=== PATIENT | female | born 1985 | race Caucasian/White ===

== ENCOUNTER 2017-02-26 06:04 | Inpatient (IN) ==
[2017-02-26 06:48] LABS: Amphetamine Screen,Urine Positive ng/mL (Cutoff=1000); Barbiturate Screen,Urine Negative ng/mL (Cutoff=200); Benzodiazepines Screen,Urine Positive ng/mL (Cutoff=200); Cannabinoid Screen,Urine Negative ng/mL (Cutoff = 50); Cocaine Screen,Urine Positive ng/mL (Cutoff= 300); Opiate Screen,Urine Negative ng/mL (Cutoff=300); Phencyclidine Screen,Urine Negative ng/mL (Cutoff=25)
[2017-02-26 07:00] LABS: Basophils # 0.1 K/mcL (0.0-0.2); Basophils % 1.1 %; Eosinophils % 0.4 %; Hematocrit 43.2 % (35.3-44.9); Immature Granulocytes % 0.2 % (0-4); Lymphocytes % 21.8 %; Mean Corpuscular HGB Conc 32.4 g/dL (31.6-35.5); Mean Corpuscular Hemoglobin 28.4 pg (28.0-33.3); Mean Corpuscular Volume 87.6 fL (83.0-100.0); Mean Platelet Volume 11.7 fL (9.4-12.4); Monocytes # 0.6 K/mcL (0.0-1.3); Monocytes % 12.6 %; Platelet Count 122 K/mcL (140-400); Red Blood Count 4.93 M/mcL (3.82-4.97); Red Cell Distribution Width 13.4 % (11.5-14.5); Segmented Neutrophils % 63.9 %
[2017-02-26 07:12] LABS: Acetaminophen < 1.0 mcg/mL (10-30); BUN/Creatinine Ratio 17 (6-26); Blood Urea Nitrogen 12 mg/dL (7-20); Calcium 9.7 mg/dL (8.6-10.8); Carbon Dioxide 24 mEq/L (19-29); Chloride 103 mEq/L (98-109); Ethanol < 10 mg/dL (0-10); Glucose 72 mg/dL (70-99); Osmolality,Calculated 286 (280-300); Potassium 3.3 mEq/L (3.5-4.5); Salicylate < 5.0 mg/dL (15-30); Sodium 139 mEq/L (136-145); eGFR For African Americans > 60 (> 60); eGFR For Non-African Americans > 60 (> 60)
--- NOTE | 2017-02-26 07:22 | Emergency Department Note ---
Disposition Clinical Impression: Libertad, Hallucinations, visual Disposition: Still a Patient Condition: Fair Referrals: NONE,PCP [Primary Care Provider] - General Adult HPI - General Chief complaint: ED General Medical Stated complaint: Psych eval Time Seen by Provider: 02/26/17 06:08 Source: patient Limitations: no limitations Nursing Notes Reviewed: Yes Vital Signs Reviewed: Yes - History of Present Illness HPI Narrative: 31-year-old female presents to emergency Department with concerns of hallucinations in for a psychiatric evaluation. Family noted patient had seen a person in the house that was not present, she stated that somebody was knocking on her window, she is also concerned that there were people sitting around cars outside of her house. Family members did not see these people. Patient denies suicidal ideation or homicidal ideation. She denies auditory hallucinations. Patient is mildly irritated that her family members did not see these people. Patient has a history of bipolar disorder but is not taking any medications. She is manic during our initial evaluation with pressured, tangential speech. Denies illicit drug use, denies alcohol use denies other prescription medication changes. Pain Scale: 0 - Related Data Previous Rx's Medication Instructions Recorded Amoxicillin 875 mg PO BID #20 tablet 06/20/15 Loratadine/Pseudophed (12 HR) 1 each PO BID #20 tab.er.12h 06/20/15 [Claritin D (12HR)] hydrOXYzine pamoate [HydrOXYzine 25 mg PO TID PRN #30 capsule 10/21/15 Pamoate] predniSONE [Prednisone] See Taper PO DAILY #42 tablet 10/21/15 Ibuprofen [Motrin] 600 mg PO Q6-8H PRN #30 tab 02/28/16 Lidocaine Viscous Oral Soln 2 ml TP Q1-3H PRN #50 ml 02/28/16 Ondansetron [Zofran] 8 mg PO Q8HR PRN #9 tablet 02/28/16 Amoxicillin 875 mg PO BID #20 tablet 09/12/16 GuaiFENesin Liq [Robitussin Liq] 200 mg PO Q6HR PRN #120 mls 09/12/16 Loratadine/Pseudophed (12 HR) 1 each PO BID #20 tab.er.12h 09/12/16 [Claritin D (12HR)] Allergies Allergy/AdvReac Type Severity Reaction Status Date / Time No Known Allergies Allergy Verified 06/20/15 19:07 All systems ED: reviewed and negative except as stated. Constitutional: Denies: fever, chills, weakness ENT ED: Denies: ear pain, throat pain Cardiovascular: Denies: chest pain, palpitations, dyspnea on exertion Respiratory: Denies: cough, dyspnea, wheezes, hemoptysis Gastrointestinal: Denies: abdominal pain, nausea, vomiting Genitourinary: Denies: urgency, dysuria Musculoskeletal: Denies: back pain, neck pain Integumentary: Denies: rash, abrasion, lesions Psychiatric: Reports: anxiety, visual hallucinations. Denies: depression, suicidal thoughts, homicidal thoughts, auditory hallucinations Endocrine: Denies: fatigue, heat or cold intolerance Hematological/Lymphatic: Denies: easy bleeding, easy bruising Past Medical History - Past Medical History Attestation: Yes The following information was validated with the patient. Source: patient Medical history: Reports: no medical history, hepatitis, other Psychiatric history: Reports: no psych history - Social History Smoking Status: Current every day smoker Smokeless Tobacco Status: No Alcohol use: Reports: none Drug use: Reports: none Physical Exam General: Alert and in no acute distress Skin: Warm, dry, intact Head: Normocephalic and atraumatic Neck: Supple, trachea midline and no tenderness Cardiovascular: Tachycardia, no murmur, normal perfusion Respiratory: CTAB, no wheezing, cough, or respiratory distress Musculoskeletal: Normal strength, no tenderness, swelling or deformity GI: Soft, nontender, nondistended. Bowel sounds present Neuro: A&O to person, place, time and situation. No focal deficits noted on exam Psychiatric: Pressured, tangential speech. Likely in a manic phase of bipolar disorder. - General Limitations: no limitations General appearance: alert, in no apparent distress Course Vital Signs Temperature 98 F 02/26/17 06:08 Pulse Rate 96 02/26/17 06:08 Respiratory Rate 18 02/26/17 06:08 Blood Pressure 109/76 02/26/17 06:08 O2 Sat by Pulse Oximetry 99 02/26/17 06:08 Temperature 98 F 02/26/17 06:08 Pulse Rate 96 02/26/17 06:08 Respiratory Rate 18 02/26/17 06:08 Blood Pressure 109/76 02/26/17 06:08 O2 Sat by Pulse Oximetry 99 02/26/17 06:08 Oxygen Delivery Oxygen Delivery Room Air Medical Decision Making - MDM Narrative Medical decision making narrative: Patient is likely in a manic phase of her bipolar disorder. Patient is not homicidal or suicidal. Patient will require a behavioral health evaluation. At the end of my shift she is pending laboratory results, reevaluation, behavioral health evaluation, and disposition. - Medical Records Medical records reviewed: Yes I reviewed the patient's medical records. - Lab Data Lab results reviewed: Yes I reviewed the patient's lab results. Result diagrams: 02/26/17 06:48 02/26/17 06:48 Lab Results 02/26/17 02/26/17 02/26/17 Range/Units 06:20 06:48 06:48 WBC 4.7 (4.3-11.1) K/mcL RBC 4.93 (3.82-4.97) M/mcL Hgb 14.0 (11.5-15.4) g/dL Hct 43.2 (35.3-44.9) % MCV 87.6 (83.0-100.0) fL MCH 28.4 (28.0-33.3) pg MCHC 32.4 (31.6-35.5) g/dL RDW 13.4 (11.5-14.5) % Plt Count 122 L (140-400) K/mcL MPV 11.7 (9.4-12.4) fL Immature Gran % 0.2 (0-4) % Seg Neutrophils % 63.9 % Lymphocytes % 21.8 % Monocytes % 12.6 % Eosinophils % 0.4 % Basophils % 1.1 % Neutrophils # 3.0 (1.6-8.9) K/mcL Lymphocytes # 1.0 (0.6-4.6) K/mcL Monocytes # 0.6 (0.0-1.3) K/mcL Eosinophils # 0.0 (0.0-0.6) K/mcL Basophils # 0.1 (0.0-0.2) K/mcL Sodium 139 (136-145) mEq/L Potassium 3.3 L (3.5-4.5) mEq/L Chloride 103 (98-109) mEq/L Carbon Dioxide 24 (19-29) mEq/L BUN 12 (7-20) mg/dL Creatinine 0.71 (0.57-1.11) mg/dL Est GFR ( Amer) > 60 (> 60) Est GFR (Non-Af Amer) > 60 (> 60) BUN/Creatinine Ratio 17 (6-26) Glucose 72 (70-99) mg/dL Calculated Osmolality 286 (280-300) Calcium 9.7 (8.6-10.8) mg/dL Salicylates < 5.0 L (15-30) mg/dL Urine Opiates Screen Negative (Txshkk=909) ng/mL Acetaminophen < 1.0 L (10-30) mcg/mL Ur Barbiturates Screen Negative (Fqaydh=668) ng/mL Ur Phencyclidine Scrn Negative (Cutoff=25) ng/mL Ur Amphetamines Screen Positive H (Xgxinf=8601) ng/mL U Benzodiazepines Scrn Positive H (Ueijia=794) ng/mL Urine Cocaine Screen Positive H (Cutoff= 300) ng/mL U Marijuana (THC) Screen Negative (Cutoff = 50) ng/mL Ethyl Alcohol < 10 (0-10) mg/dL
[2017-02-26 08:25] LABS: Bilirubin,Urine Negative (Negative); Blood,Urine Trace (Negative); Clarity,Urine Cloudy (Clear); Color,Urine Yellow (Yellow); Glucose,Urine (UA) Normal (Normal); Ketones,Urine 40 mg/dL (Negative); Leukocyte Esterase,Urine Moderate (Negative); Nitrite,Urine Negative (Negative); Protein,Urine 30 mg/dL (Neg-Trace); Specific Gravity,Urine 1.026 (1.010-1.025); Urobilinogen,Urine Normal (Normal)
[2017-02-26 08:26] LABS: Bacteria,Urine Moderate per hpf (None-Few); Hyaline Casts,Urine None Seen per lpf (None-Few); Squamous Epithelial Cell,Urine Many per lpf (None-Few); WBC,Urine TNTC per hpf (0-3)
[2017-02-26 08:39] LABS: RBC,Urine 0-3 per hpf (0-3)
--- NOTE | 2017-02-26 10:18 | Emergency Department Note ---
Disposition Clinical Impression: Libertad, Hallucinations, visual Disposition: Admitted As Inpatient Condition: Fair Referrals: NONE,PCP [Primary Care Provider] - Forms: ED Satisfaction Letter, Work/School Release Time of Disposition: 12:47 General Adult HPI - General Chief complaint: ED General Medical Stated complaint: Psych eval Time Seen by Provider: 02/26/17 06:08 Source: patient Limitations: no limitations - History of Present Illness Pain Scale: 0 - Related Data Home Medications Medication Instructions Recorded Confirmed Buprenorphine HCl/Naloxone HCl 1 film SL BID 02/26/17 02/26/17 [Buprenorphin-Naloxon 8-2 mg Sl] Allergies Allergy/AdvReac Type Severity Reaction Status Date / Time No Known Allergies Allergy Verified 06/20/15 19:07 Constitutional: Denies: fever, chills, weakness ENT ED: Denies: ear pain, throat pain Cardiovascular: Denies: chest pain, palpitations, dyspnea on exertion Respiratory: Denies: cough, dyspnea, wheezes, hemoptysis Gastrointestinal: Denies: abdominal pain, nausea, vomiting Genitourinary: Denies: urgency, dysuria Musculoskeletal: Denies: back pain, neck pain Integumentary: Denies: rash, abrasion, lesions Psychiatric: Reports: anxiety, visual hallucinations. Denies: depression, suicidal thoughts, homicidal thoughts, auditory hallucinations Endocrine: Denies: fatigue, heat or cold intolerance Hematological/Lymphatic: Denies: easy bleeding, easy bruising Past Medical History - Past Medical History Medical history: Reports: no medical history, hepatitis, other Psychiatric history: Reports: no psych history - Social History Smoking Status: Current every day smoker Smokeless Tobacco Status: No Alcohol use: Reports: none Drug use: Reports: none Physical Exam - General Limitations: no limitations General appearance: alert, in no apparent distress Course Course Narrative: Patient taken over at the beginning of my shift. Detailed sign out completed by Dr. Henrik Ji. We reviewed the patient's presentation symptoms medical history and evaluation. I introduced myself at the bedside with the patient this time. Patient is otherwise stable this point a psychiatric evaluation completed. See detailed documentation of physical exam of the previous physician. Definitive management to be completed by myself. Physical examination otherwise unremarkable - Reevaluation(s) Reevaluation #1: Psychiatric team contacted at 0930 hours. They are evaluating the patient the bedside Time: 09:30 Reevaluation #2: Patient admitted at this time by the psychiatric team. They will come take the patient on another facility. No other issues or concerns under this time. Time: 12:47 Vital Signs Temperature 98 F 02/26/17 06:08 Pulse Rate 96 02/26/17 06:08 Respiratory Rate 18 02/26/17 06:08 Blood Pressure 109/76 02/26/17 06:08 O2 Sat by Pulse Oximetry 99 02/26/17 06:08 Temperature 98 F 02/26/17 06:08 Pulse Rate 62 02/26/17 11:08 Respiratory Rate 16 02/26/17 11:08 Blood Pressure 103/53 02/26/17 11:08 O2 Sat by Pulse Oximetry 98 02/26/17 11:08 Oxygen Delivery Oxygen Delivery Room Air Medical Decision Making - MDM Narrative Medical decision making narrative: Manic episodes, delusions - Medical Records Medical records reviewed: Yes I reviewed the patient's medical records. - Lab Data Lab results reviewed: Yes I reviewed the patient's lab results. Result diagrams: 02/26/17 06:48 02/26/17 06:48 Lab Results 02/26/17 02/26/17 02/26/17 Range/Units 06:20 06:48 06:48 WBC 4.7 (4.3-11.1) K/mcL RBC 4.93 (3.82-4.97) M/mcL Hgb 14.0 (11.5-15.4) g/dL Hct 43.2 (35.3-44.9) % MCV 87.6 (83.0-100.0) fL MCH 28.4 (28.0-33.3) pg MCHC 32.4 (31.6-35.5) g/dL RDW 13.4 (11.5-14.5) % Plt Count 122 L (140-400) K/mcL MPV 11.7 (9.4-12.4) fL Immature Gran % 0.2 (0-4) % Seg Neutrophils % 63.9 % Lymphocytes % 21.8 % Monocytes % 12.6 % Eosinophils % 0.4 % Basophils % 1.1 % Neutrophils # 3.0 (1.6-8.9) K/mcL Lymphocytes # 1.0 (0.6-4.6) K/mcL Monocytes # 0.6 (0.0-1.3) K/mcL Eosinophils # 0.0 (0.0-0.6) K/mcL Basophils # 0.1 (0.0-0.2) K/mcL Sodium 139 (136-145) mEq/L Potassium 3.3 L (3.5-4.5) mEq/L Chloride 103 (98-109) mEq/L Carbon Dioxide 24 (19-29) mEq/L BUN 12 (7-20) mg/dL Creatinine 0.71 (0.57-1.11) mg/dL Est GFR ( Amer) > 60 (> 60) Est GFR (Non-Af Amer) > 60 (> 60) BUN/Creatinine Ratio 17 (6-26) Glucose 72 (70-99) mg/dL Calculated Osmolality 286 (280-300) Calcium 9.7 (8.6-10.8) mg/dL Urine Color (Yellow) Urine Clarity (Clear) Urine pH (5.0-8.0) pH Units Ur Specific [place] (1.010-1.025) Urine Protein (Neg-Trace) mg/dL Urine Glucose (UA) (Normal) mg/dL Urine Ketones (Negative) mg/dL Urine Blood (Negative) Urine Nitrite (Negative) Urine Bilirubin (Negative) Urine Urobilinogen (Normal) mg/dL Ur Leukocyte Esterase (Negative) Urine Microscopic RBC (0-3) per hpf Urine Microscopic WBC (0-3) per hpf Ur Squamous Epith Cells (None-Few) per lpf Urine Bacteria (None-Few) per hpf Hyaline Casts (None-Few) per lpf Salicylates < 5.0 L (15-30) mg/dL Urine Opiates Screen Negative (Yedbus=518) ng/mL Acetaminophen < 1.0 L (10-30) mcg/mL Ur Barbiturates Screen Negative (Npoaiw=758) ng/mL Ur Phencyclidine Scrn Negative (Cutoff=25) ng/mL Ur Amphetamines Screen Positive H (Joelmz=7192) ng/mL U Benzodiazepines Scrn Positive H (Ublmeg=617) ng/mL Urine Cocaine Screen Positive H (Cutoff= 300) ng/mL U Marijuana (THC) Screen Negative (Cutoff = 50) ng/mL Ethyl Alcohol < 10 (0-10) mg/dL 02/26/17 Range/Units 08:11 WBC (4.3-11.1) K/mcL RBC (3.82-4.97) M/mcL Hgb (11.5-15.4) g/dL Hct (35.3-44.9) % MCV (83.0-100.0) fL MCH (28.0-33.3) pg MCHC (31.6-35.5) g/dL RDW (11.5-14.5) % Plt Count (140-400) K/mcL MPV (9.4-12.4) fL Immature Gran % (0-4) % Seg Neutrophils % % Lymphocytes % % Monocytes % % Eosinophils % % Basophils % % Neutrophils # (1.6-8.9) K/mcL Lymphocytes # (0.6-4.6) K/mcL Monocytes # (0.0-1.3) K/mcL Eosinophils # (0.0-0.6) K/mcL Basophils # (0.0-0.2) K/mcL Sodium (136-145) mEq/L Potassium (3.5-4.5) mEq/L Chloride (98-109) mEq/L Carbon Dioxide (19-29) mEq/L BUN (7-20) mg/dL Creatinine (0.57-1.11) mg/dL Est GFR ( Amer) (> 60) Est GFR (Non-Af Amer) (> 60) BUN/Creatinine Ratio (6-26) Glucose (70-99) mg/dL Calculated Osmolality (280-300) Calcium (8.6-10.8) mg/dL Urine Color Yellow (Yellow) Urine Clarity Cloudy A (Clear) Urine pH 6.0 (5.0-8.0) pH Units Ur Specific [place] 1.026 H (1.010-1.025) Urine Protein 30 H (Neg-Trace) mg/dL Urine Glucose (UA) Normal (Normal) mg/dL Urine Ketones 40 H (Negative) mg/dL Urine Blood Trace H (Negative) Urine Nitrite Negative (Negative) Urine Bilirubin Negative (Negative) Urine Urobilinogen Normal (Normal) mg/dL Ur Leukocyte Esterase Moderate H (Negative) Urine Microscopic RBC 0-3 (0-3) per hpf Urine Microscopic WBC TNTC H (0-3) per hpf Ur Squamous Epith Cells Many H (None-Few) per lpf Urine Bacteria Moderate H (None-Few) per hpf Hyaline Casts None Seen (None-Few) per lpf Salicylates (15-30) mg/dL Urine Opiates Screen (Klbkwg=804) ng/mL Acetaminophen (10-30) mcg/mL Ur Barbiturates Screen (Whhsom=797) ng/mL Ur Phencyclidine Scrn (Cutoff=25) ng/mL Ur Amphetamines Screen (Gassvb=6329) ng/mL U Benzodiazepines Scrn (Tlunsj=308) ng/mL Urine Cocaine Screen (Cutoff= 300) ng/mL U Marijuana (THC) Screen (Cutoff = 50) ng/mL Ethyl Alcohol (0-10) mg/dL
[2017-02-26] MEDS ORDERED: Mag Hydrox/Al Hydrox/Simeth 30 ML UDC PO PRN (13:23)
[2017-02-26] MEDS ORDERED: Haloperidol Lactate 5 MG/ML VIAL IM PRN (13:23)
[2017-02-26] MEDS ORDERED: MOM Conc 10 ML UD.LIQ PO PRN (13:23)
[2017-02-26] MEDS ORDERED: *HR* LORazepam 2 MG/ML VIAL IM PRN (13:23)
[2017-02-26] MEDS ORDERED: *HR* LORazepam 1 MG TABLET PO PRN (13:23)
[2017-02-26] MEDS ORDERED: traZODone 50 MG TABLET PO PRN (21:00)
[2017-02-26] MEDS: Acetaminophen 325 MG TABLET PO PRN (21:49)
--- NOTE | 2017-02-26 22:55 | Internal Medicine Consult Note ---
Date of Encounter: 02/26/17 Time of Encounter: 22:30 - Assessment and Plan (1) Cellulitis of right hand Current Visit: Yes Status: Acute Assessment and plan: She denied any recent IV drug usage No needle grimaldo / no open wounds noticed over Rt wirst Her WBC - WNL, No fever, Normal HR, at this point will treat her with PO Abx Clindamycin Will get X ray of Hand / Wrist If she develops any fever, or her hand swelling gets worse will consider to transferring her to out Hospitalist service and treat her with IV Abx mean while cont supportive and symptomatic care keep hand elevated keep cold compressions PO analgesics PRN I wanted to thank Dr. Valles for involving us in your pt's care. (2) IV drug abuse Current Visit: Yes Status: Acute Assessment and plan: Toxicology is positive for Benzo, Cocaine and Amepthamines Counseled about drug usage (3) Hallucinations, visual Current Visit: Yes Status: Acute Assessment and plan: Cont current excellent care by primary team Internal Medicine - CN: HPI - Data of Consult Patient: new to practice Requesting Physician: Adriane Valles MD - Consult Narrative History of present illness: Ms. Crandall is a 31 year old female with known possible Bipolar / psychiatric problem pt admitted into [facility] today after she presented to ER with hallucinations. She also happened to have Rt hand welling and tenderness from last 2 days. We are asked to evaluate this pt for her cellulites treatment and possible transfer to regular floor if she needed. When I examined the pt she is resting comfortably, she did c/o swelling in Rt Hand swelling / tenderness from last 2 days, which progressively worsening. She denied any loss of sensation in her fingers, able to wiggle and move all her fingers ok. She denied any trauma. She denied any CP / SOB. She denied any fever / chills. Past Med Surg Social Fam HX - Past Medical History Medical history: no medical history, hepatitis, other Psychiatric history: no psych history - Past Surgical History Surgical History: - Social History Smoking Status: Current every day smoker Packs per day: 1 Smokeless Tobacco Status: No Alcohol use: none Drug use: cocaine, methamphetamine, other - Additional Family History Additional family history: Family hsitory reviewed and non contribuitory to current problem. Review of systems: All the systems are reviewed everything is benign except the systems and symptoms I mentioned in the history of present illness Internal Medicine - CN: Meds Buprenorphine HCl/Naloxone HCl [Buprenorphin-Naloxon 8-2 mg Sl] 1 film SL BID [History] 3 Allergy/AdvReac Type Severity Reaction Status Date / Time No Known Allergies Allergy Verified 06/20/15 19:07 Internal Medicine - CN: Exam - Constitutional Vitals: Temp Pulse Resp BP Pulse Ox 98.0 F 91 20 136/69 98 02/26/17 20:21 02/26/17 20:21 02/26/17 20:21 02/26/17 20:21 02/26/17 11:08 General appearance IM: Present: A&O X 3, no acute distress, answers questions appropriately - Head Head exam: Present: atraumatic, normal inspection - Neck Neck exam general surgery: Present: normal inspection, supple - Respiratory Respiratory exam: Present: decreased breath sounds. Absent: rales, respiratory distress, rhonchi, wheezes - Cardiovascular Cardiovascular exam IM: Present: RRR, +S1, +S2. Absent: diastolic murmur, systolic murmur, tachycardia - GI/Abdominal GI/Abdominal exam IM: Present: soft. Absent: distended, rebound, rigid, tenderness - Extremities Exam Extremities exam IM: Absent: calf tenderness, mottling, pedal edema Additional comments: mild erythema and moderate swelling noticed over Rt hand dorsum and plantar region around base of 1st meta carpal region - Expanded Upper Extremities Exam Hand wrist exam: Present: swelling, tenderness. Absent: crepitus, dislocation, laceration - Back Exam Back exam: Absent: CVA tenderness (L), CVA tenderness (R) - Neurological Exam Neurological exam: Present: alert, oriented X3 - Psychiatric Psychiatric exam: Present: anxious. Absent: suicidal ideation Internal Medicine - CN: Reslt - Labs CBC & Chem 7: 02/26/17 06:48 02/26/17 06:48 Consult Discharge Plan - Plan Referrals: NONE,PCP [Primary Care Provider] -
--- NOTE | 2017-02-27 14:37 | Internal Med Progress Note ---
Date of Encounter: 02/27/17 Time of Encounter: 14:33 - Assessment and plan (1) Cellulitis of right hand Current Visit: Yes Status: Acute Assessment and plan: Clinically improving will continue Clindamycin PO repeat labs in am keep hand elevated cold compressions PO analgesics as needed (2) Hallucinations, visual Current Visit: Yes Status: Acute Assessment and plan: management per psych (3) IV drug abuse Current Visit: Yes Status: Chronic - Subjective Interval history: Pt is a 31y/o female admitted to psych inpatient unit for hallucinations/ bipolar disorder. Medicine consulted for right hand cellulitis. Patient seen and examined at bedside. Resting comfortably in bed. Erythema improved on right hand, no pain reported. As per nursing report, patient did not receive morning dose of Clindamycin but has received the afternoon dose. - Constitutional Vitals: Temp Pulse Resp BP Pulse Ox 99.3 F 94 18 108/65 98 02/27/17 09:00 02/27/17 09:00 02/27/17 09:00 02/27/17 09:00 02/26/17 11:08 General appearance: Present: disheveled, A&O X 3, no acute distress, answers questions appropriately - Head Head exam: Present: atraumatic, normocephalic - Eye Eye exam: Present: conjuntiva pink, sclera anicteric - Respiratory Respiratory exam: Present: CTAB. Absent: respiratory distress, wheezes - Cardiovascular Cardiovascular exam: Present: RRR, +S1, +S2. Absent: diastolic murmur, gallop, rubs, systolic murmur - GI/Abdominal GI/Abdominal exam: Present: normal bowel sounds, soft, no peritoneal signs. Absent: distended, tenderness - Extremities Exam Extremities exam: Present: warm, radial pulses palpable and symmetrical. Absent : calf tenderness, cyanotic, pedal edema Additional comments: right hand erythema localized to dorsal hand and edema of dorsal hand. Warm to touch nontender - Neurological Exam Neurological exam: Present: alert, oriented X3 - Psychiatric Psychiatric exam: Present: normal affect, normal mood Internal Medicine: Result - Labs CBC & Chem 7: 02/26/17 06:48 02/26/17 06:48 - Impressions Impressions Hand X-Ray 02/26/17 22:45 IMPRESSION: Soft tissue swelling suggested dorsally at the palmar level. No acute osseous findings. D/ / Naseem Adame MD / Naseem Adame MD Interpreting Provider: Naseem Adame MD - VTE Reasons for not Prescribing Prophylaxis: Treatment not Indicated - Low risk for VTE Consult Discharge Plan - Plan Referrals: NONE,PCP [Primary Care Provider] -
--- NOTE | 2017-02-27 15:55 | Psychiatry History & Physical ---
Date of Encounter: 02/27/17 Time of Encounter: 15:50 History of Present Illness Patient Stated Chief Complaint: psychosis Medicare Admission Attestation: For traditional Medicare patients the provided hospital inpatient services are reasonable and necessary and in the case of services not specified as inpatient -only under 42 CFR 419.22 (n), that they are appropriately provided as inpatient services in accordance 42 CFR 412.3. For Critical Access Hospital the patient may reasonably be expected to be discharged or transferred to a hospital within 96 hours after admission to the Critical Access Hospital. Admitted From: Home Plans for Post Hospital Care: Home History of Present Illness: Ms. Crandall is a 31 year old female who presented to the ER in a psychotic state. Tox screen positive for multiple substances of abuse including amphetamines. Last night she was irritable with staff. She was cussing, threatening, and she required prns. Today she is calmer and more pleasant. Still not thinking clearly but no longer responding to internal stimuli. Admits she is depressed but denies SI. One previous admission for SI but denies any follow-up. Claims she was tried on [place] and Zoloft at the time but did not benefit from them. Discussed options and she is interested in trying Seroquel. She is also interested in outpatient services so will make referrals for counseling and med management. Already linked with AOD treatment. Part of a Suboxone clinic. Developed cellulitis overnight. Hospitalist has seen her and she was started on antibiotics and pain meds. History of MRSA and IV antibiotics. Currently living with parents and plans to return to their home once stable. Past Med Surg Social Fam HX - Past Medical History Medical history: no medical history, hepatitis, other - Past Psychiatric History Psychiatric history: Reports: depression, previous psychiatric hospitalization Family psychiatric history: Unknown Family History of Suicide: Unknown - Past Surgical History Surgical History: - Social History Smoking Status: Current every day smoker Smokeless Tobacco Status: No Alcohol use: none Drug use: none Medications & Allergies Buprenorphine HCl/Naloxone HCl [Buprenorphin-Naloxon 8-2 mg Sl] 1 film SL BID [History] 3 Allergy/AdvReac Type Severity Reaction Status Date / Time No Known Allergies Allergy Verified 06/20/15 19:07 Review of Systems Constitutional: Denies: fever, chills, weakness, weight change Eyes: Denies: eye pain, vision change Ears, Nose, Throat: Denies: ear pain, throat pain, dental pain, hearing loss, congestion Cardiovascular: Denies: chest pain, palpitations, dyspnea on exertion Respiratory: Denies: cough, dyspnea, wheezes Gastrointestinal: Denies: abdominal pain, nausea, vomiting, diarrhea, constipation Genitourinary male: Denies: urgency, dysuria, frequency, genital lesions Genitourinary female: Denies: urgency, dysuria, frequency, abnormal menses, dyspareunia Musculoskeletal: Reports: joint swelling, joint pain Integumentary: Reports: other Neurological: Denies: headache, weakness, numbness, memory loss Psychiatric: Reports: depression Endocrine: Denies: fatigue, heat or cold intolerance Hematologic/Lymphatic: Denies: easy bruising, lymphadenopathy Allergic/Immunologic: Denies: urticaria, itchy eyes Mental Status Exam Patient orientation: Yes Person, Yes Time, Yes Place Level of alertness: Alert Patient appearance: Appropriate, Well Groomed Behavior: calm, cooperative Psychomotor activity: Normal Eye contact: Maintains Eye Contact Mood description: Depressed Affect description: full range Speech pattern: Normal rate, Normal rhythm, Normal tone Speech volume: Normal Thought process: Tangential Thought content: No Suicidal ideation, No Homicidal ideation, Yes Preoccupation Perceptual disturbances: No Auditory hallucinations, No Visual hallucinations Attention span: Capable of Focused Attention Memory description: Grossly Intact Patient reliability: Questionable Historian Intelligence estimate: Average Judgment: Limited Insight: Minimal Exam - HEENT Head exam IM: Present: atraumatic Eye exam IM: Present: EOMI ENT exam IM: Present: mucous membranes moist - Neurological Neurological exam IM: Present: alert, oriented X3 - Respiratory Respiratory exam IM: Present: CTAB - GI/Abdominal GI/Abdominal exam IM: Present: normal bowel sounds - Extremities Extremities exam IM: Present: tenderness, warm - Skin Skin exam IM: Present: erythema Results - Vital Signs Vital signs: Temp Pulse Resp BP Pulse Ox 99.3 F 94 18 108/65 98 02/27/17 09:00 02/27/17 09:00 02/27/17 09:00 02/27/17 09:00 02/26/17 11:08 - Labs Labs: Laboratory Last Values WBC 4.7 K/mcL (4.3-11.1) 02/26/17 06:48 RBC 4.93 M/mcL (3.82-4.97) 02/26/17 06:48 Hgb 14.0 g/dL (11.5-15.4) 02/26/17 06:48 Hct 43.2 % (35.3-44.9) 02/26/17 06:48 MCV 87.6 fL (83.0-100.0) 02/26/17 06:48 MCH 28.4 pg (28.0-33.3) 02/26/17 06:48 MCHC 32.4 g/dL (31.6-35.5) 02/26/17 06:48 RDW 13.4 % (11.5-14.5) 02/26/17 06:48 Plt Count 122 K/mcL (140-400) L 02/26/17 06:48 MPV 11.7 fL (9.4-12.4) 02/26/17 06:48 Immature Gran % 0.2 % (0-4) 02/26/17 06:48 Seg Neutrophils % 63.9 % 02/26/17 06:48 Lymphocytes % 21.8 % 02/26/17 06:48 Monocytes % 12.6 % 02/26/17 06:48 Eosinophils % 0.4 % 02/26/17 06:48 Basophils % 1.1 % 02/26/17 06:48 Neutrophils # 3.0 K/mcL (1.6-8.9) 02/26/17 06:48 Lymphocytes # 1.0 K/mcL (0.6-4.6) 02/26/17 06:48 Monocytes # 0.6 K/mcL (0.0-1.3) 02/26/17 06:48 Eosinophils # 0.0 K/mcL (0.0-0.6) 02/26/17 06:48 Basophils # 0.1 K/mcL (0.0-0.2) 02/26/17 06:48 Sodium 139 mEq/L (136-145) 02/26/17 06:48 Potassium 3.3 mEq/L (3.5-4.5) L 02/26/17 06:48 Chloride 103 mEq/L (98-109) 02/26/17 06:48 Carbon Dioxide 24 mEq/L (19-29) 02/26/17 06:48 BUN 12 mg/dL (7-20) 02/26/17 06:48 Creatinine 0.71 mg/dL (0.57-1.11) 02/26/17 06:48 Est GFR ( Amer) > 60 (> 60) 02/26/17 06:48 Est GFR (Non-Af Amer) > 60 (> 60) 02/26/17 06:48 BUN/Creatinine Ratio 17 (6-26) 02/26/17 06:48 Glucose 72 mg/dL (70-99) 02/26/17 06:48 Calculated Osmolality 286 (280-300) 02/26/17 06:48 Calcium 9.7 mg/dL (8.6-10.8) 02/26/17 06:48 Urine Color Yellow (Yellow) 02/26/17 08:11 Urine Clarity Cloudy (Clear) A 02/26/17 08:11 Urine pH 6.0 pH Units (5.0-8.0) 02/26/17 08:11 Ur Specific [place] 1.026 (1.010-1.025) H 02/26/17 08:11 Urine Protein 30 mg/dL (Neg-Trace) H 02/26/17 08:11 Urine Glucose (UA) Normal mg/dL (Normal) 02/26/17 08:11 Urine Ketones 40 mg/dL (Negative) H 02/26/17 08:11 Urine Blood Trace (Negative) H 02/26/17 08:11 Urine Nitrite Negative (Negative) 02/26/17 08:11 Urine Bilirubin Negative (Negative) 02/26/17 08:11 Urine Urobilinogen Normal mg/dL (Normal) 02/26/17 08:11 Ur Leukocyte Esterase Moderate (Negative) H 02/26/17 08:11 Urine Microscopic RBC 0-3 per hpf (0-3) 02/26/17 08:11 Urine Microscopic WBC TNTC per hpf (0-3) H 02/26/17 08:11 Ur Squamous Epith Cells Many per lpf (None-Few) H 02/26/17 08:11 Urine Bacteria Moderate per hpf (None-Few) H 02/26/17 08:11 Hyaline Casts None Seen per lpf (None-Few) 02/26/17 08:11 Salicylates < 5.0 mg/dL (15-30) L 02/26/17 06:48 Urine Opiates Screen Negative ng/mL (Aidbmi=638) 02/26/17 06:20 Acetaminophen < 1.0 mcg/mL (10-30) L 02/26/17 06:48 Ur Barbiturates Screen Negative ng/mL (Pphsrb=069) 02/26/17 06:20 Ur Phencyclidine Scrn Negative ng/mL (Cutoff=25) 02/26/17 06:20 Ur Amphetamines Screen Positive ng/mL (Ppvbqi=4618) H 02/26/17 06:20 U Benzodiazepines Scrn Positive ng/mL (Gtafvc=773) H 02/26/17 06:20 Urine Cocaine Screen Positive ng/mL (Cutoff= 300) H 02/26/17 06:20 U Marijuana (THC) Screen Negative ng/mL (Cutoff = 50) 02/26/17 06:20 Ethyl Alcohol < 10 mg/dL (0-10) 02/26/17 06:48 - Impressions Impressions Hand X-Ray 02/26/17 22:45 IMPRESSION: Soft tissue swelling suggested dorsally at the palmar level. No acute osseous findings. D/ / Naseem Adame MD / Naseem Adame MD Interpreting Provider: Naseem Adame MD Assessment and Plan (1) Psychosis Current visit: Yes Status: Acute Plan: Admit inpatient for safety and stabilization, Close observation, Suicide Precautions per unit protocol, Encourage participation in unit milieu, Group Therapy, Monitor sleep, Monitor appetite Risks, benefits, side effects, alternatives discussed w/pt: Yes Patient agreeable to treatment: Yes Plans for Post Hospital Care: Home Estimated Length of Stay (Days): 4 Qualifiers: Psychosis type: unspecified psychosis type Qualified Code(s): F29 - Unspecified psychosis not due to a substance or known physiological condition
[2017-02-27] MEDS: *HR* HYDROcodone/Acet 5/325 mg TABLET PO PRN (19:57)
[2017-02-27] MEDS: hydrOXYzine pamoate 25 MG CAPSULE PO PRN (19:58)
[2017-02-28 08:46] LABS: BUN/Creatinine Ratio 15 (6-26); Blood Urea Nitrogen 10 mg/dL (7-20); Calcium 9.1 mg/dL (8.6-10.8); Carbon Dioxide 26 mEq/L (19-29); Chloride 106 mEq/L (98-109); Glucose 80 mg/dL (70-99); Magnesium 1.9 mg/dL (1.6-2.6); Osmolality,Calculated 286 (280-300); Phosphorous 3.3 mg/dL (2.3-4.7); Potassium 3.8 mEq/L (3.5-4.5); Sodium 139 mEq/L (136-145); eGFR For African Americans > 60 (> 60); eGFR For Non-African Americans > 60 (> 60)
[2017-02-28 08:57] LABS: Basophils % 0.5 %; Eosinophils # 0.1 K/mcL (0.0-0.6); Eosinophils % 1.2 %; Hematocrit 42.5 % (35.3-44.9); Hemoglobin 13.8 g/dL (11.5-15.4); Immature Granulocytes % 0.2 % (0-4); Lymphocytes # 1.5 K/mcL (0.6-4.6); Lymphocytes % 22.5 %; Mean Corpuscular HGB Conc 32.5 g/dL (31.6-35.5); Mean Corpuscular Hemoglobin 28.6 pg (28.0-33.3); Mean Corpuscular Volume 88.2 fL (83.0-100.0); Mean Platelet Volume 11.6 fL (9.4-12.4); Monocytes # 0.8 K/mcL (0.0-1.3); Monocytes % 11.6 %; Neutrophils # 4.2 K/mcL (1.6-8.9); Platelet Count 137 K/mcL (140-400); Red Blood Count 4.82 M/mcL (3.82-4.97); Red Cell Distribution Width 13.5 % (11.5-14.5)
[2017-02-28] MEDS: Acetaminophen 325 MG TABLET PO PRN (08:57)
--- NOTE | 2017-02-28 10:12 | Psychiatry Progress Note ---
Date of Encounter: 02/28/17 Time of Encounter: 10:08 Subjective Interval history: Looks better. Spent most of yesterday sleeping. Took the Seroquel last night and reports it helped. Also received Haldol and Ativan according to client so will need to verify what exactly happened to warrant the prns. However, with the Haldol and Seroquel on board and the recreational drugs leaving her system she is looking a lot better. Want to give her one more night on meds and hopefully without the need for prns. If she is still doing well in the morning will look at discharge tomorrow. She is already linked with AOD services. Currently being set up with a PCP and outpatient mental health follow-up. Cellulitis looks much better. Antibiotics seem to be working. Review of Systems Constitutional: Denies: fever, chills, weakness, weight change Eyes: Denies: eye pain, vision change Ears, Nose, Throat: Denies: ear pain, throat pain, dental pain, hearing loss, congestion Cardiovascular: Denies: chest pain, palpitations, dyspnea on exertion Respiratory: Denies: cough, dyspnea, wheezes Gastrointestinal: Denies: abdominal pain, nausea, vomiting, diarrhea, constipation Musculoskeletal: Denies: joint swelling, joint pain Integumentary: Reports: other Neurological: Denies: headache, weakness, numbness, memory loss Psychiatric: Reports: depression Objective: Exam Patient orientation: Yes Person, Yes Time, Yes Place Level of alertness: Alert Patient appearance: Appropriate, Well Groomed Behavior: calm, cooperative Psychomotor activity: Normal Eye contact: Maintains Eye Contact Mood description: Euthymic/stable Affect description: congruent with mood, full range Speech pattern: Normal rate, Normal rhythm, Normal tone Speech volume: Normal Thought process: Linear, Goal Oriented Thought content: No Suicidal ideation, No Homicidal ideation, No Overt delusions Perceptual disturbances: No Auditory hallucinations, No Visual hallucinations Judgment: Limited Insight: Minimal Results - Vital Signs Vital Signs: Temp Pulse Resp BP Pulse Ox 98.8 F 90 18 106/74 98 02/28/17 09:00 02/28/17 09:00 02/28/17 09:00 02/28/17 09:00 02/26/17 11:08 - Labs Labs: Laboratory Results - last 24 hr 02/28/17 02/28/17 08:07 08:07 WBC 6.5 RBC 4.82 Hgb 13.8 Hct 42.5 MCV 88.2 MCH 28.6 MCHC 32.5 RDW 13.5 Plt Count 137 L MPV 11.6 Immature Gran % 0.2 Seg Neutrophils % 64.0 Lymphocytes % 22.5 Monocytes % 11.6 Eosinophils % 1.2 Basophils % 0.5 Neutrophils # 4.2 Lymphocytes # 1.5 Monocytes # 0.8 Eosinophils # 0.1 Basophils # 0.0 Sodium 139 Potassium 3.8 Chloride 106 Carbon Dioxide 26 BUN 10 Creatinine 0.66 Est GFR ( Amer) > 60 Est GFR (Non-Af Amer) > 60 BUN/Creatinine Ratio 15 Glucose 80 Calculated Osmolality 286 Calcium 9.1 Phosphorus 3.3 Magnesium 1.9 - Impressions ITS Impressions Hand X-Ray 02/26/17 22:45 IMPRESSION: Soft tissue swelling suggested dorsally at the palmar level. No acute osseous findings. D/ / Naseem Adame MD / Naseem Adame MD Interpreting Provider: Naseem Adame MD Assessment and Plan (1) Psychosis Current visit: Yes Status: Acute Plan: Continue hospitalization, Close observation, Suicide Precautions per unit protocol, Encourage participation in unit milieu, Group Therapy, Monitor sleep, Monitor appetite Risks, benefits, side effects, alternatives discussed w/pt: Yes Patient agreeable to treatment: Yes Qualifiers: Psychosis type: unspecified psychosis type Qualified Code(s): F29 - Unspecified psychosis not due to a substance or known physiological condition Consult Discharge Plan - Plan Referrals: NONE,PCP [Primary Care Provider] -
--- NOTE | 2017-02-28 15:39 | Internal Med Progress Note ---
Date of Encounter: 02/28/17 Time of Encounter: 14:45 - Assessment and plan (1) Cellulitis of right hand Current Visit: Yes Status: Acute Assessment and plan: Clinically improving, afebrile, noted to have more mobility in the hand will continue Clindamycin PO keep hand elevated cold compressions PO analgesics as needed Pt will need ten days of PO abx total Risks associated with abx use discussed in detail with the patient Labs reviewed-all within acceptable range (2) Hallucinations, visual Current Visit: Yes Status: Acute Assessment and plan: management per psych (3) IV drug abuse Current Visit: Yes Status: Chronic - Subjective Interval history: Pt is a 31y/o female admitted to psych inpatient unit for hallucinations/ bipolar disorder. Medicine consulted for right hand cellulitis. Patient seen and examined at bedside. Resting comfortably in bed. Erythema improved on right hand, no pain reported. - Constitutional Vitals: Temp Pulse Resp BP Pulse Ox 98.8 F 90 18 106/74 98 02/28/17 09:00 02/28/17 09:00 02/28/17 09:00 02/28/17 09:00 02/26/17 11:08 General appearance: Present: disheveled, A&O X 3, no acute distress, answers questions appropriately - Head Head exam: Present: atraumatic, normocephalic - Eye Eye exam: Present: conjuntiva pink, sclera anicteric - Respiratory Respiratory exam: Present: CTAB. Absent: accessory muscle use, rales, rhonchi, wheezes - Cardiovascular Cardiovascular exam: Present: RRR, +S1, +S2. Absent: diastolic murmur, gallop, rubs, systolic murmur - GI/Abdominal GI/Abdominal exam: Present: normal bowel sounds, soft, no peritoneal signs. Absent: distended, tenderness - Extremities Exam Extremities exam: Present: warm, radial pulses palpable and symmetrical. Absent : calf tenderness, cyanotic, pedal edema Additional comments: right hand erythema/edema on dorsal surface of hand, non tender-improved from previous day - Neurological Exam Neurological exam: Present: alert, oriented X3 Internal Medicine: Result - Labs CBC & Chem 7: 02/28/17 08:07 02/28/17 08:07 Labs: Short CBC 02/28/17 Range/Units 08:07 WBC 6.5 (4.3-11.1) K/mcL Hgb 13.8 (11.5-15.4) g/dL Hct 42.5 (35.3-44.9) % Plt Count 137 L (140-400) K/mcL Neutrophils # 4.2 (1.6-8.9) K/mcL BMP 02/28/17 08:07 Sodium 139 Potassium 3.8 Chloride 106 Carbon Dioxide 26 BUN 10 Creatinine 0.66 Glucose 80 Calcium 9.1 - VTE Reasons for not Prescribing Prophylaxis: Treatment not Indicated - Low risk for VTE Consult Discharge Plan - Plan Additional Instructions: Patient will resume services with [facility] on 03/01/2017 at 11:30am Referrals: [facility] [Outside] (The above appointment is with , for outpatient psychiatric assessment and medication management services. Please arrive 30 minutes early to complete paperwork. Please bring your photo ID ( bring proof of address if you do not have an ID) and medication list. This is the first available appointment. You may contact the office regularly to check for cancellations that may allow you to be seen sooner. Additionally, the new caseworker intake assigned to you will contact you directly to schedule your intake appointment for case management and mental health counseling services. ) Esmer Dela Cruz [Advanced Practice Nurse] - 03/02/17 9:30 am (The above appointment is with Esmer Dela Cruz CNP, at [facility]. This appointment is to establish you with a primary care provider. Please arrive 15 minutes early to complete paperwork. Please bring your insurance card, photo ID and list of current medications to your first appointment. This is the first available appointment. You may contact the office regularly to check for cancellations that may allow you to be seen sooner. )
[2017-02-28] MEDS: hydrOXYzine pamoate 25 MG CAPSULE PO PRN (21:00)
[2017-02-28] MEDS: *HR* HYDROcodone/Acet 5/325 mg TABLET PO PRN (21:00)
[2017-03-01 08:24] VITALS: BP 102/69
--- NOTE | 2017-03-01 08:55 | Discharge Summary ---
Date of Encounter: 03/01/17 Time of Encounter: 08:49 Diagnosis - Discharge Diagnosis (1) Psychosis Status: Acute Qualifiers: Psychosis type: unspecified psychosis type Qualified Code(s): F29 - Unspecified psychosis not due to a substance or known physiological condition Medications - Discharge Medications Prescriptions: HYDROcodone/Acet 5/325 mg [[place] 5-325 mg] 1 tab PO Q4HR PRN #9 tablet PRN Reason: Moderate Pain Clindamycin [Cleocin] 450 mg PO Q8H #72 capsule Quetiapine Fumarate [Seroquel] 100 mg PO HS #30 tablet Buprenorphine HCl/Naloxone HCl [Buprenorphin-Naloxon 8-2 mg Sl] 1 film SL BID [History] Clindamycin [Cleocin] 450 mg PO Q8H #72 capsule 03/01/17 [Rx] HYDROcodone/Acet 5/325 mg [[place] 5-325 mg] 1 tab PO Q4HR PRN #9 tablet 03/01/17 [Rx] Quetiapine Fumarate [Seroquel] 100 mg PO HS #30 tablet 03/01/17 [Rx] 3 Allergy/AdvReac Type Severity Reaction Status Date / Time No Known Allergies Allergy Verified 06/20/15 19:07 Results Procedures and tests throughout hospitalization: Completed Lab Orders Category Date Time Status Basic Metabolic Panel AM 0400 Lab 02/28/17 08:07 Completed Complete Blood Count [HEME] AM 0400 Lab 02/28/17 08:07 Completed Magnesium AM 0400 Lab 02/28/17 08:07 Completed Phosphorous AM 0400 Lab 02/28/17 08:07 Completed Completed Imaging Orders Category Date Time Status XR hand 2V RT [XR] Routine Exams 02/26/17 22:45 Completed Provider Date of admission: 02/26/17 12:50 Primary care physician: PCP NONE Consults: 02/26/17 20:36 Consult to Hospitalist [CONS] Stat Consulting Provider: Hospitalist Sylvie Reason for Consult: right hand is red, swollen, and warm to touch Call Completed: Yes Discharging clinician: Adirane Valles Assessment and Plan - Patient/Caregiver Discharge Instructions Activity: resume usual activities as tolerated Diet: regular diet Additional Instructions: Patient will resume services with [facility] on 03/01/2017 at 11:30am - Follow up Plan Follow up with: [facility] [Outside] - 03/26/17 10:00 am (The above appointment is with Joy Courtney, for outpatient psychiatric assessment and medication management services. Please arrive 30 minutes early to complete paperwork. Please bring your photo ID (bring proof of address if you do not have an ID) and medication list. This is the first available appointment. You may contact the office regularly to check for cancellations that may allow you to be seen sooner. Additionally, the new case finishing machine adjuster assigned to you will contact you directly to schedule your intake appointment for case management and mental health counseling services. ) Esmer Dela Cruz [Advanced Practice Nurse] - 03/02/17 9:30 am (The above appointment is with Esmer Dela Cruz CNP, at [facility]. This appointment is to establish you with a primary care provider. Please arrive 15 minutes early to complete paperwork. Please bring your insurance card, photo ID and list of current medications to your first appointment. This is the first available appointment. You may contact the office regularly to check for cancellations that may allow you to be seen sooner. ) Functional capacity at discharge: independent ambulation Overall status at discharge: Stable Disposition: Home, Self-Care Hospital Course Hospital course: Ms. Crandall is a 31 year old female who was admitted secondary to psychosis. Tox screen was positive for multiple substances of abuse including cocaine and amphetamines. Psychosis rapidly resolved with Seroquel and Haldol. She was also treated for cellulitis of her right hand. She was seen by the hospitalist and started on antibiotics. She was linked with a PCP and an appointment was made for her within 24 hours of discharge. She was also linked with community mental health providers prior to discharge. Once her psychosis resolved she was calm and pleasant. She denied any significant mood changes. She denied any SI or HI. - Time Spent with Patient Total time spent providing and/or coordinating discharge services: Quality - Multiple Antipsychotics Patient discharged on 2 or more antipsychotic medications: No Procedures - Procedures Procedures: Medication Management, Crisis Stabilization, Supportive Therapy, Group Therapy Mental Status Exam - Mental Status Exam Patient orientation: Yes Person, Yes Time, Yes Place Level of alertness: Alert Patient appearance: Appropriate, Well Groomed Behavior: calm, cooperative Psychomotor activity: Normal Eye contact: Maintains Eye Contact Mood description: Euthymic/stable Affect description: congruent with mood, full range Speech pattern: Normal rate, Normal rhythm, Normal tone Speech Volume: Normal Thought process: Linear, Goal Oriented Thought Content: No Suicidal ideation, No Homicidal ideation, No Overt delusions Perceptual Disturbances: No Auditory hallucinations, No Visual hallucinations Judgment: Limited Insight: Minimal
== END 2017-03-01 09:50 | disposition home or self-care (01) | DRG 774 ==
LOC: EMEROO 06:04 → 1ANU 12:50
PROVIDERS: ADMIT Psychiatry & Neurology Psychiatry; ATTEND Psychiatry & Neurology Psychiatry

== ENCOUNTER 2017-12-21 10:26 | Inpatient (IN) ==
--- NOTE | 2017-12-21 10:49 | Emergency Department Note ---
Disposition Clinical Impression: Auditory hallucinations, Visual hallucinations, Medical clearance for psychiatric admission Disposition: Admitted As Inpatient Condition: Undetermined Time of Disposition: 13:45 Psych HPI - General Chief Complaint: ED Psychiatric Symptoms Stated Complaint: SI, Hearing Voices Time Seen by Provider: 12/21/17 10:28 Source: patient, EMS Mode of arrival: EMS Limitations: altered mental status Nursing Notes Reviewed: Yes Vital Signs Reviewed: Yes - History of Present Illness HPI Narrative: 32-year-old female with history of previous psychiatric admission and drug abuse arrives to the emergency department with reports that the patient is seeing people that are not present. The patient's father reported that the patient is seeing people and Called law enforcement. The patient was transported to the emergency department for evaluation. The patient does admit to methamphetamine use roughly 4 days ago. Addition the patient was noted by EMS to have suicidal ideations but denies any suicidal ideations to me on evaluations. The patient is very tearful and is speaking tangentially. The patient is also expressing some flight of ideas. She is seeing people that are not present. She denies any other complaints at this time. - Related Data Home Medications Medication Instructions Recorded Confirmed Buprenorphine HCl/Naloxone HCl 1.75 tab SL DAILY 12/21/17 12/21/17 [Buprenorphin-Naloxon 8-2 mg Sl] Allergies Allergy/AdvReac Type Severity Reaction Status Date / Time No Known Allergies Allergy Verified 03/21/17 17:44 All systems ED: reviewed and negative except as stated. Constitutional: Denies: fever, chills, weakness ENT ED: Denies: dysphagia Cardiovascular: Denies: chest pain Respiratory: Denies: dyspnea Gastrointestinal: Denies: abdominal pain Genitourinary: Denies: urgency, dysuria Musculoskeletal: Denies: back pain, neck pain Integumentary: Denies: rash Neurological: Denies: headache Psychiatric: Reports: auditory hallucinations, visual hallucinations. Denies: suicidal thoughts, homicidal thoughts Past Medical History - Past Medical History Attestation: Yes The following information was validated with the patient. Source: patient, old records reviewed Medical history: Reports: hepatitis (C), other (IVDA ) Surgical history: Reports: Psychiatric history: Reports: depression, previous psychiatric hospitalization - Social History Smoking Status: Current every day smoker Smokeless Tobacco Status: No Alcohol use: Reports: none Drug use: Reports: none Physical Exam - General Limitations: altered mental status General appearance: alert, in no apparent distress, anxious - Head Head exam: atraumatic, normocephalic, normal inspection - Eye Eye exam: Present: normal appearance, PERRL, EOMI - ENT ENT exam: normal exam, normal oropharynx, mucous membranes moist - Neck Neck exam: Present: normal inspection, full ROM, trachea midline - Chest Chest inspection: Present: normal inspection, symmetric chest wall rise - Respiratory Respiratory exam: Absent: respiratory distress - Cardiovascular Cardiovascular exam: Present: regular rate - Extremities Exam Extremities exam: Present: normal inspection, full ROM. Absent: tenderness, pedal edema - Neurological Exam Neurological exam: Present: alert, oriented X3, CN II-XII intact - Psychiatric Psychiatric exam: Present: anxious, manic. Absent: suicidal ideation - Skin Skin exam: Present: warm, dry, intact, normal color Course Vital Signs Temperature 98 F 12/21/17 10:39 Pulse Rate 112 12/21/17 10:39 Respiratory Rate 18 12/21/17 10:39 Blood Pressure 119/65 12/21/17 10:39 O2 Sat by Pulse Oximetry 99 12/21/17 10:39 Temperature 98 F 12/21/17 10:39 Pulse Rate 112 12/21/17 10:39 Respiratory Rate 18 12/21/17 10:39 Blood Pressure 119/65 12/21/17 10:39 O2 Sat by Pulse Oximetry 99 12/21/17 10:39 Oxygen Delivery Oxygen Delivery Room Air Psych - MDM Narrative Medical decision making narrative: Patient's workup in the emergency department demonstrates concern for patient psychiatric disease. She has been medically cleared. After one a evaluated the patient, they stated they will be admitting her to their service under Dr. Dalton. Patient made aware and agrees to plan. No further questions or concerns noted at this time. - Lab Data Result diagrams: 12/21/17 10:43 12/21/17 10:43 Lab Results 12/21/17 12/21/17 12/21/17 Range/Units 10:43 10:43 10:58 WBC 9.3 (4.3-11.1) K/mcL RBC 4.57 (3.82-4.97) M/mcL Hgb 13.5 (11.5-15.4) g/dL Hct 39.8 (35.3-44.9) % MCV 87.1 (83.0-100.0) fL MCH 29.5 (28.0-33.3) pg MCHC 33.9 (31.6-35.5) g/dL RDW 12.7 (11.5-14.5) % Plt Count 163 (140-400) K/mcL MPV 11.1 (9.4-12.4) fL Immature Gran % 0.2 (0-4) % Seg Neutrophils % 56.7 % Lymphocytes % 27.6 % Monocytes % 13.9 % Eosinophils % 0.8 % Basophils % 0.8 % Neutrophils # 5.3 (1.6-8.9) K/mcL Lymphocytes # 2.6 (0.6-4.6) K/mcL Monocytes # 1.3 (0.0-1.3) K/mcL Eosinophils # 0.1 (0.0-0.6) K/mcL Basophils # 0.1 (0.0-0.2) K/mcL Sodium 134 L (136-145) mEq/L Potassium 3.7 (3.5-5.1) mEq/L Chloride 103 (98-107) mEq/L Carbon Dioxide 23 (23-29) mEq/L BUN 25 H (6-20) mg/dL Creatinine 0.91 (0.60-1.20) mg/dL Est GFR ( Amer) > 60 (> 60) Est GFR (Non-Af Amer) > 60 (> 60) BUN/Creatinine Ratio 27 H (6-26) Glucose 103 (70-105) mg/dL Calculated Osmolality 283 (280-300) Calcium 9.6 (8.6-10.3) mg/dL TSH 0.997 (0.340-5.600) mcIU/mL Urine Color Yellow (Yellow) Urine Clarity Clear (Clear) Urine pH 5.5 (5.0-8.0) pH Units Ur Specific [place] 1.023 (1.010-1.025) Urine Protein Negative (Neg-Trace) mg/dL Urine Glucose (UA) Normal (Normal) mg/dL Urine Ketones Negative (Negative) mg/dL Urine Blood Negative (Negative) Urine Nitrite Negative (Negative) Urine Bilirubin Negative (Negative) Urine Urobilinogen Normal (Normal) mg/dL Ur Leukocyte Esterase Negative (Negative) Urine Test (Negative) Salicylates < 2.5 L (15.0-30.0) mg/dL Urine Opiates Screen (Kbdhtw=529) ng/mL Acetaminophen < 10 L (10-20) mcg/mL Ur Barbiturates Screen (Alavlu=666) ng/mL Ur Phencyclidine Scrn (Cutoff=25) ng/mL Ur Amphetamines Screen (Zvcucd=6342) ng/mL U Benzodiazepines Scrn (Jhjqzc=415) ng/mL Urine Cocaine Screen (Cutoff= 300) ng/mL U Marijuana (THC) Screen (Cutoff = 50) ng/mL Ur Drug Screen Interp Ethyl Alcohol < 10 (Less than 10) mg/dL 12/21/17 12/21/17 Range/Units 10:58 10:58 WBC (4.3-11.1) K/mcL RBC (3.82-4.97) M/mcL Hgb (11.5-15.4) g/dL Hct (35.3-44.9) % MCV (83.0-100.0) fL MCH (28.0-33.3) pg MCHC (31.6-35.5) g/dL RDW (11.5-14.5) % Plt Count (140-400) K/mcL MPV (9.4-12.4) fL Immature Gran % (0-4) % Seg Neutrophils % % Lymphocytes % % Monocytes % % Eosinophils % % Basophils % % Neutrophils # (1.6-8.9) K/mcL Lymphocytes # (0.6-4.6) K/mcL Monocytes # (0.0-1.3) K/mcL Eosinophils # (0.0-0.6) K/mcL Basophils # (0.0-0.2) K/mcL Sodium (136-145) mEq/L Potassium (3.5-5.1) mEq/L Chloride (98-107) mEq/L Carbon Dioxide (23-29) mEq/L BUN (6-20) mg/dL Creatinine (0.60-1.20) mg/dL Est GFR ( Amer) (> 60) Est GFR (Non-Af Amer) (> 60) BUN/Creatinine Ratio (6-26) Glucose (70-105) mg/dL Calculated Osmolality (280-300) Calcium (8.6-10.3) mg/dL TSH (0.340-5.600) mcIU/mL Urine Color (Yellow) Urine Clarity (Clear) Urine pH (5.0-8.0) pH Units Ur Specific [place] (1.010-1.025) Urine Protein (Neg-Trace) mg/dL Urine Glucose (UA) (Normal) mg/dL Urine Ketones (Negative) mg/dL Urine Blood (Negative) Urine Nitrite (Negative) Urine Bilirubin (Negative) Urine Urobilinogen (Normal) mg/dL Ur Leukocyte Esterase (Negative) Urine Test Negative (Negative) Salicylates (15.0-30.0) mg/dL Urine Opiates Screen Negative (Rwtszs=260) ng/mL Acetaminophen (10-20) mcg/mL Ur Barbiturates Screen Negative (Arxvjd=849) ng/mL Ur Phencyclidine Scrn Negative (Cutoff=25) ng/mL Ur Amphetamines Screen Positive H (Sqizge=2765) ng/mL U Benzodiazepines Scrn Positive H (Qubusm=821) ng/mL Urine Cocaine Screen Negative (Cutoff= 300) ng/mL U Marijuana (THC) Screen Negative (Cutoff = 50) ng/mL Ur Drug Screen Interp See Below Ethyl Alcohol (Less than 10) mg/dL Psychiatric Medical Clearance - Medical Clearance Checklist Medical History: No Social History Section defined Current Vitals: Last Vital Signs Temp 98 F 12/21/17 10:39 Pulse 112 12/21/17 10:39 Resp 18 12/21/17 10:39 BP 119/65 12/21/17 10:39 Pulse Ox 99 12/21/17 10:39 Psychiatric Lab Panel: Drug Levels and Toxicity 12/21/17 12/21/17 10:43 10:58 Urine Opiates Screen Negative Acetaminophen < 10 L Ur Barbiturates Screen Negative Ur Phencyclidine Scrn Negative Ur Amphetamines Screen Positive H U Benzodiazepines Scrn Positive H Urine Cocaine Screen Negative U Marijuana (THC) Screen Negative Ethyl Alcohol < 10 Abnormal Labs: Abnormal lab results Sodium 134 mEq/L (136-145) L 12/21/17 10:43 BUN 25 mg/dL (6-20) H 12/21/17 10:43 BUN/Creatinine Ratio 27 (6-26) H 12/21/17 10:43 Salicylates < 2.5 mg/dL (15.0-30.0) L 12/21/17 10:43 Acetaminophen < 10 mcg/mL (10-20) L 12/21/17 10:43 Ur Amphetamines Screen Positive ng/mL (Vhocgp=1933) H 12/21/17 10:58 U Benzodiazepines Scrn Positive ng/mL (Auiilo=806) H 12/21/17 10:58 Statement of Medical Clearance: I have evaluated the patient, reviewed diagnostic information, and certify that the patient's medical condition is sufficiently stable that transfer to the psychiatric unit does not pose a significant risk of deterioration. Attestation Statement - Attestation Attestation: I, Henrik Ji, examined this patient and my medical decision-making was reviewed with the MONOTYPE KEYBOARD OPERATOR/PA/Advanced Practice Nurse/Resident Physician. I agree with the documented findings, disposition and treatment plan as described except to the extent set forth below. 32-year-old female presents emergency Department for evaluation of hallucinations. Patient has been having auditory and visual hallucinations. Patient believes that she is hearing and seeing family members in the emergency department. She has tangential speech. Patient admits to methamphetamine use within the past few days. Patient has not slept in the past 48 hours. Denies fever, chest pain, abdominal pain. Denies suicidal ideation or homicidal ideation. We will medically clear the patient and she will be evaluated by behavioral health for likely placement for further psychiatric care.
[2017-12-21 10:56] LABS: Basophils # 0.1 K/mcL (0.0-0.2); Basophils % 0.8 %; Eosinophils # 0.1 K/mcL (0.0-0.6); Eosinophils % 0.8 %; Hematocrit 39.8 % (35.3-44.9); Hemoglobin 13.5 g/dL (11.5-15.4); Immature Granulocytes % 0.2 % (0-4); Lymphocytes # 2.6 K/mcL (0.6-4.6); Lymphocytes % 27.6 %; Mean Corpuscular HGB Conc 33.9 g/dL (31.6-35.5); Mean Corpuscular Hemoglobin 29.5 pg (28.0-33.3); Mean Corpuscular Volume 87.1 fL (83.0-100.0); Mean Platelet Volume 11.1 fL (9.4-12.4); Monocytes # 1.3 K/mcL (0.0-1.3); Monocytes % 13.9 %; Neutrophils # 5.3 K/mcL (1.6-8.9); Platelet Count 163 K/mcL (140-400); Red Blood Count 4.57 M/mcL (3.82-4.97); Red Cell Distribution Width 12.7 % (11.5-14.5); Segmented Neutrophils % 56.7 %
[2017-12-21 11:15] LABS: Bilirubin,Urine Negative (Negative); Blood,Urine Negative (Negative); Clarity,Urine Clear (Clear); Color,Urine Yellow (Yellow); Glucose,Urine (UA) Normal (Normal); Ketones,Urine Negative (Negative); Leukocyte Esterase,Urine Negative (Negative); Nitrite,Urine Negative (Negative); PH,Urine 5.5 pH Units (5.0-8.0); Protein,Urine Negative (Neg-Trace); Specific Gravity,Urine 1.023 (1.010-1.025); Urobilinogen,Urine Normal (Normal)
[2017-12-21 11:34] LABS: Amphetamine Screen,Urine Positive ng/mL (Cutoff=1000); Barbiturate Screen,Urine Negative ng/mL (Cutoff=200); Benzodiazepines Screen,Urine Positive ng/mL (Cutoff=200); Cannabinoid Screen,Urine Negative ng/mL (Cutoff = 50); Cocaine Screen,Urine Negative ng/mL (Cutoff= 300); Opiate Screen,Urine Negative ng/mL (Cutoff=300); Phencyclidine Screen,Urine Negative ng/mL (Cutoff=25)
[2017-12-21 11:35] LABS: Acetaminophen < 10 mcg/mL (10-20); BUN/Creatinine Ratio 27 (6-26); Blood Urea Nitrogen 25 mg/dL (6-20); Calcium 9.6 mg/dL (8.6-10.3); Carbon Dioxide 23 mEq/L (23-29); Chloride 103 mEq/L (98-107); Ethanol < 10 mg/dL (Less than 10); Glucose 103 mg/dL (70-105); Osmolality,Calculated 283 (280-300); Potassium 3.7 mEq/L (3.5-5.1); Salicylate < 2.5 mg/dL (15.0-30.0); Sodium 134 mEq/L (136-145); Thyroid Stimulating Hormone 0.997 mcIU/mL (0.340-5.600); eGFR For Non-African Americans > 60 (> 60)
[2017-12-21] MEDS ORDERED: *HR* LORazepam 2 MG/ML VIAL IM PRN (15:02)
[2017-12-21] MEDS ORDERED: Ibuprofen 400 MG TABLET PO PRN (15:02)
[2017-12-21] MEDS ORDERED: *HR* LORazepam 1 MG TABLET PO PRN (15:02)
[2017-12-21] MEDS ORDERED: traZODone 50 MG TABLET PO PRN (15:02)
[2017-12-21] MEDS ORDERED: MOM Conc 10 ML UD.LIQ PO PRN (15:02)
[2017-12-21] MEDS ORDERED: Mag Hydrox/Al Hydrox/Simeth 30 ML UDC PO PRN (15:02)
[2017-12-21] MEDS ORDERED: Haloperidol Lactate 5 MG/ML VIAL IM PRN (15:02)
[2017-12-21] MEDS ORDERED: hydrOXYzine pamoate 25 MG CAPSULE PO PRN (15:02)
--- NOTE | 2017-12-22 11:45 | Psychiatry History & Physical ---
Date of Encounter: 12/22/17 Time of Encounter: 11:39 History of Present Illness Patient Stated Chief Complaint: psychosis Medicare Admission Attestation: For traditional Medicare patients the provided hospital inpatient services are reasonable and necessary and in the case of services not specified as inpatient -only under 42 CFR 419.22 (n), that they are appropriately provided as inpatient services in accordance 42 CFR 412.3. For Critical Access Hospital the patient may reasonably be expected to be discharged or transferred to a hospital within 96 hours after admission to the Critical Access Hospital. Admitted From: Home Plans for Post Hospital Care: Home History of Present Illness: Ms. Crandall is a 32 year old female who was admitted secondary to /. Family brought her to the ER because she was seeing and talking to people who were not there. Client paranoid and tried to call law enforcement from the ER. Tox screen positive for meth and benzos. Client reports her last benzo use was three weeks ago and that she last used meth on Sunday. Looks to be in active withdrawal. Diaphoretic. Tremulous. Picking at skin. Currently in an outpatient rehab program. Has done residential in the past. Client reports she was sober for a while and just recently relapsed. Also takes Suboxone. Has a Suboxone bottle in her purse that is current. However, more are missing from the bottle than should be. May be overtaking them or selling them. Records indicate client may have reported SI to EMS. However, she denied SI in the ER and is denying SI now. Denies SI or suicide attempts have ever been a problem for her. Denies HI. Denies symptoms of psychosis now but still appears psychotic. Will start her on low dose Risperdal to hep with symptoms and monitor her withdrawal. Vital signs thus far have been good. Not currently linked with a mental health provider. Client states she has a past diagnosis of Bipolar Disorder but was never really compliant with treatment. Substance abuse appears to be her primary issue. Past Med Surg Social Fam HX - Past Medical History Medical history: hepatitis, other - Past Psychiatric History Psychiatric history: Reports: bipolar, previous psychiatric hospitalization Family psychiatric history: Unknown Family History of Suicide: Unknown - Past Surgical History Surgical History: - Social History Smoking Status: Current every day smoker Smokeless Tobacco Status: No Alcohol use: none Drug use: methamphetamine, other Medications & Allergies Buprenorphine HCl/Naloxone HCl [Buprenorphin-Naloxon 8-2 mg Sl] 1.75 tab SL DAILY 12/21/17 [History] 3 Allergy/AdvReac Type Severity Reaction Status Date / Time No Known Allergies Allergy Verified 03/21/17 17:44 Review of Systems Constitutional: Denies: fever, chills, weakness, weight change Eyes: Denies: eye pain, vision change Ears, Nose, Throat: Denies: ear pain, throat pain, dental pain, hearing loss, congestion Cardiovascular: Denies: chest pain, palpitations, dyspnea on exertion Respiratory: Denies: cough, dyspnea, wheezes Gastrointestinal: Denies: abdominal pain, nausea, vomiting, diarrhea, constipation Genitourinary female: Denies: urgency, dysuria, frequency, abnormal menses, dyspareunia Musculoskeletal: Denies: joint swelling, joint pain Integumentary: Denies: rash, lesions, pruritus Neurological: Denies: headache, weakness, numbness, memory loss Endocrine: Denies: fatigue, heat or cold intolerance Hematologic/Lymphatic: Denies: easy bruising, lymphadenopathy Allergic/Immunologic: Denies: urticaria, itchy eyes Exam - HEENT Head exam IM: Present: atraumatic Eye exam IM: Present: EOMI, normal appearance, PERRL ENT exam IM: Present: normal exam - Neurological Neurological exam: Present: CN II-XII intact - Respiratory Respiratory exam IM: Present: CTAB - GI/Abdominal GI/Abdominal exam IM: Present: normal bowel sounds, soft. Absent: tenderness - Extremities Extremities exam IM: Present: full ROM - Skin Skin exam IM: Present: dry, warm - Constitutional Vitals: Temp Pulse Resp BP Pulse Ox 97.8 F 74 16 111/75 99 12/22/17 09:00 12/22/17 09:00 12/22/17 09:00 12/22/17 09:00 12/21/17 10:39 General appearance: age & developmentally appropriate, well-groomed, well- nourished - Musculoskeletal Gait: normal Station: shaky Strength & Tone: normal for patient - Psychiatric Patient Orientation: Yes Person, Yes Time, Yes Place Level of alertness: Alert Behavior: restless Psychomotor activity: Increased Eye Contact: Maintains Eye Contact Mood Description: Irritable Affect description: congruent with mood Speech Volume: Normal Speech pattern: normal rate, normal rhythm, normal tone, fluent, spontaneous Language & Vocabulary: consistent with education Thought Process: Tangential Thought Content: No Suicidal ideation, No Homicidal ideation, Yes Overt delusions, Yes Paranoid delusion Perceptual Disturbances: Yes Reacting to internal stimuli, No Auditory hallucinations, No Visual hallucinations Attention Span Ability: Capable of Focused Attention Memory Description: Immediate Intact, Recent Impaired, Remote Intact Patient Reliability: Questionable Historian Fund of knowledge: Yes abstraction ability, Yes average, Yes aware of current events Intelligence Estimate: Average Judgment: Limited Insight: Minimal Results - Labs Labs: Laboratory Last Values WBC 9.3 K/mcL (4.3-11.1) 12/21/17 10:43 RBC 4.57 M/mcL (3.82-4.97) 12/21/17 10:43 Hgb 13.5 g/dL (11.5-15.4) 12/21/17 10:43 Hct 39.8 % (35.3-44.9) 12/21/17 10:43 MCV 87.1 fL (83.0-100.0) 12/21/17 10:43 MCH 29.5 pg (28.0-33.3) 12/21/17 10:43 MCHC 33.9 g/dL (31.6-35.5) 12/21/17 10:43 RDW 12.7 % (11.5-14.5) 12/21/17 10:43 Plt Count 163 K/mcL (140-400) 12/21/17 10:43 MPV 11.1 fL (9.4-12.4) 12/21/17 10:43 Immature Gran % 0.2 % (0-4) 12/21/17 10:43 Seg Neutrophils % 56.7 % 12/21/17 10:43 Lymphocytes % 27.6 % 12/21/17 10:43 Monocytes % 13.9 % 12/21/17 10:43 Eosinophils % 0.8 % 12/21/17 10:43 Basophils % 0.8 % 12/21/17 10:43 Neutrophils # 5.3 K/mcL (1.6-8.9) 12/21/17 10:43 Lymphocytes # 2.6 K/mcL (0.6-4.6) 12/21/17 10:43 Monocytes # 1.3 K/mcL (0.0-1.3) 12/21/17 10:43 Eosinophils # 0.1 K/mcL (0.0-0.6) 12/21/17 10:43 Basophils # 0.1 K/mcL (0.0-0.2) 12/21/17 10:43 Sodium 134 mEq/L (136-145) L 12/21/17 10:43 Potassium 3.7 mEq/L (3.5-5.1) 12/21/17 10:43 Chloride 103 mEq/L (98-107) 12/21/17 10:43 Carbon Dioxide 23 mEq/L (23-29) 12/21/17 10:43 BUN 25 mg/dL (6-20) H 12/21/17 10:43 Creatinine 0.91 mg/dL (0.60-1.20) 12/21/17 10:43 Est GFR ( Amer) > 60 (> 60) 12/21/17 10:43 Est GFR (Non-Af Amer) > 60 (> 60) 12/21/17 10:43 BUN/Creatinine Ratio 27 (6-26) H 12/21/17 10:43 Glucose 103 mg/dL (70-105) 12/21/17 10:43 Calculated Osmolality 283 (280-300) 12/21/17 10:43 Calcium 9.6 mg/dL (8.6-10.3) 12/21/17 10:43 TSH 0.997 mcIU/mL (0.340-5.600) 12/21/17 10:43 Urine Color Yellow (Yellow) 12/21/17 10:58 Urine Clarity Clear (Clear) 12/21/17 10:58 Urine pH 5.5 pH Units (5.0-8.0) 12/21/17 10:58 Ur Specific [place] 1.023 (1.010-1.025) 12/21/17 10:58 Urine Protein Negative mg/dL (Neg-Trace) 12/21/17 10:58 Urine Glucose (UA) Normal mg/dL (Normal) 12/21/17 10:58 Urine Ketones Negative mg/dL (Negative) 12/21/17 10:58 Urine Blood Negative (Negative) 12/21/17 10:58 Urine Nitrite Negative (Negative) 12/21/17 10:58 Urine Bilirubin Negative (Negative) 12/21/17 10:58 Urine Urobilinogen Normal mg/dL (Normal) 12/21/17 10:58 Ur Leukocyte Esterase Negative (Negative) 12/21/17 10:58 Urine Test Negative (Negative) 12/21/17 10:58 Salicylates < 2.5 mg/dL (15.0-30.0) L 12/21/17 10:43 Urine Opiates Screen Negative ng/mL (Yyvfck=321) 12/21/17 10:58 Acetaminophen < 10 mcg/mL (10-20) L 12/21/17 10:43 Ur Barbiturates Screen Negative ng/mL (Cikfai=901) 12/21/17 10:58 Ur Phencyclidine Scrn Negative ng/mL (Cutoff=25) 12/21/17 10:58 Ur Amphetamines Screen Positive ng/mL (Mdxswc=2742) H 12/21/17 10:58 U Benzodiazepines Scrn Positive ng/mL (Omjbtr=854) H 12/21/17 10:58 Urine Cocaine Screen Negative ng/mL (Cutoff= 300) 12/21/17 10:58 U Marijuana (THC) Screen Negative ng/mL (Cutoff = 50) 12/21/17 10:58 Ur Drug Screen Interp See Below 12/21/17 10:58 Ethyl Alcohol < 10 mg/dL (Less than 10) 12/21/17 10:43 Assessment and Plan (1) Substance-induced psychotic disorder Current visit: Yes Status: Acute Plan: Admit inpatient for safety and stabilization, Close observation, Suicide Precautions per unit protocol, Encourage participation in unit milieu, Group Therapy, Monitor sleep, Monitor appetite Risks, benefits, side effects, alternatives discussed w/pt: Yes Patient agreeable to treatment: Yes Plans for Post Hospital Care: Home Estimated Length of Stay (Days): 4 (2) Methamphetamine dependence Current visit: Yes Status: Acute Plan: Admit inpatient for safety and stabilization, Close observation, Suicide Precautions per unit protocol, Encourage participation in unit milieu, Group Therapy, Monitor sleep, Monitor appetite Risks, benefits, side effects, alternatives discussed w/pt: Yes Patient agreeable to treatment: Yes Plans for Post Hospital Care: Home Estimated Length of Stay (Days): 4 (3) Opiate dependence Current visit: Yes Status: Acute Plan: Admit inpatient for safety and stabilization, Close observation, Suicide Precautions per unit protocol, Encourage participation in unit milieu, Group Therapy, Monitor sleep, Monitor appetite Risks, benefits, side effects, alternatives discussed w/pt: Yes Patient agreeable to treatment: Yes Plans for Post Hospital Care: Home Estimated Length of Stay (Days): 4 Qualifiers: Substance use status: uncomplicated Qualified Code(s): F11.20 - Opioid dependence, uncomplicated
[2017-12-22] MEDS: NALOXONE HCL SL SCH (12:24)
[2017-12-22] MEDS: BUPRENORPHINE HCL SL SCH (12:24)
[2017-12-22] MEDS: risperiDONE 0.25 MG TABLET PO SCH (21:39)
[2017-12-23] MEDS: BUPRENORPHINE HCL SL SCH (09:43)
[2017-12-23] MEDS: risperiDONE 0.25 MG TABLET PO SCH (09:43)
[2017-12-23] MEDS: NALOXONE HCL SL SCH (09:43)
[2017-12-23 10:28] VITALS: BP 113/74
--- NOTE | 2017-12-23 10:29 | Discharge Summary ---
Date of Encounter: 12/23/17 Time of Encounter: 10:27 Diagnosis - Discharge Diagnosis (1) Substance-induced psychotic disorder Status: Acute (2) Methamphetamine dependence Status: Acute (3) Opiate dependence Status: Acute Qualifiers: Substance use status: uncomplicated Qualified Code(s): F11.20 - Opioid dependence, uncomplicated Medications - Discharge Medications Prescriptions: risperiDONE [RisperDAL] 0.5 mg PO BID #28 tablet Buprenorphine HCl/Naloxone HCl [Buprenorphin-Naloxon 8-2 mg Sl] 1.75 tab SL DAILY 12/21/17 [History] risperiDONE [RisperDAL] 0.5 mg PO BID #28 tablet 12/23/17 [Rx] 3 Allergy/AdvReac Type Severity Reaction Status Date / Time No Known Allergies Allergy Verified 03/21/17 17:44 Provider Date of admission: 12/21/17 14:50 Primary care physician: PCP NONE Discharging clinician: Adriane Valles Psychiatry Exam - Constitutional Vitals: Temp Pulse Resp BP Pulse Ox 98.7 F 74 16 131/77 99 12/22/17 20:03 12/22/17 20:03 12/22/17 20:03 12/22/17 20:03 12/21/17 10:39 General appearance: age & developmentally appropriate, well-groomed, well- nourished - Musculoskeletal Gait: normal Station: relaxed Strength & Tone: normal for patient - Psychiatric Patient Orientation: Yes Person, Yes Time, Yes Place Level of alertness: Alert Behavior: calm, cooperative Psychomotor activity: Normal Eye Contact: Maintains Eye Contact Mood Description: Euthymic/stable Affect description: congruent with mood, full range Speech Volume: Normal Speech pattern: normal rate, normal rhythm, normal tone, fluent, spontaneous Language & Vocabulary: consistent with education Thought Process: Linear, Goal Oriented Thought Content: No Suicidal ideation, No Homicidal ideation, No Overt delusions Perceptual Disturbances: No Auditory hallucinations, No Visual hallucinations Attention Span Ability: Capable of Focused Attention Memory Description: Grossly Intact Patient Reliability: Reliable Historian Fund of knowledge: Yes abstraction ability, Yes aware of current events Intelligence Estimate: Average Judgment: Fair Insight: Partial Hospital Course Hospital course: Ms. Crandall is a 32 year old female who was admitted secondary to psychosis. Had been using meth and other substances. At the time of admission she appeared to be in withdrawal. Diaphoretic, shaking, picking at skin. Started on low dose Risperdal. Cleared well. Today she appears back to normal. Vital signs have remained good. Client states today she had been doing well for a year and then recently relapsed. Has been in outpatient AOD treatment for a year voluntarily and states her counselors there know she has struggled with her sobriety this past month. 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 Denies she was ever suicidal. States all past mental health issues have been related to drug use. Self identifies that AOD use is her biggest issue. Wants linked with Integrated [facility]. Gave this telegraphic typewriter repairer her phone number to be contacted by psychologist social tomorrow. Looks stable to leave today. Thinking clearly. Pleasant. Bright and reactive. Denies SI/HI/AH/VH. - Time Spent with Patient Total time spent providing and/or coordinating discharge services: Assessment and Plan - Patient/Caregiver Discharge Instructions Activity: resume usual activities as tolerated Diet: regular diet - Follow up Plan Follow up with: NONE,PCP [Primary Care Provider] - Functional capacity at discharge: independent ambulation Overall status at discharge: Stable Disposition: Home, Self-Care Quality - Multiple Antipsychotics Patient discharged on 2 or more antipsychotic medications: No Procedures - Procedures Procedures: Medication Management, Crisis Stabilization, Supportive Therapy, Group Therapy
== END 2017-12-23 12:15 | disposition home or self-care (01) | DRG 773 ==
LOC: EMEROO 10:26 → 1ANU 14:50
PROVIDERS: ADMIT Psychiatry & Neurology Forensic Psychiatry; ATTEND Psychiatry & Neurology Forensic Psychiatry

== ENCOUNTER 2018-12-08 17:40 | Observation (INO) ==
--- NOTE | 2018-12-08 18:01 | Emergency Department Note ---
Disposition Clinical Impression: Withdrawal complaint, Psychogenic formication, Vaginal discomfort, Auditory hallucinations, Hallucinations, visual, Substance-induced psychotic disorder, Medical clearance for psychiatric admission Opiate dependence Qualifiers: Substance use status: with opioid-induced psychotic disorder Complication of substance-induced condition: with hallucinations Qualified Code(s): F11.251 - Opioid dependence with opioid-induced psychotic disorder with hallucinations Disposition: Still a Patient Condition: Fair Referrals: Johnathon Salas DO [Primary Care Provider] - Forms: ED Satisfaction Letter Time of Disposition: 18:41 General Adult HPI - General Chief complaint: ED Urogenital-Female Stated complaint: vaginal Time Seen by Provider: 12/08/18 17:47 Source: patient, family Mode of arrival: ambulatory Limitations: no limitations Nursing Notes Reviewed: Yes Vital Signs Reviewed: Yes - History of Present Illness HPI Narrative: 33-year-old female past medical history of anxiety/depression, bipolar disorder, multi drug abuse including opiates and methamphetamine in the past currently on Suboxone treatment. Presenting for one week history of gradually progressive and worsening symptoms of 4 medications, patient states that she feels like there are bugs crawling all over her, she notes that her dog has currently had fleas she feels that she may have fleas on her as well. She feels that she is seeing bugs flying around her, she feels that she has something inside her and states that she may have something inside her vagina which is been causing discomfort. The patient also states that she has been hearing voices speaking to her and experiencing not only auditory or visual hallucinations. Patient notes that she has been very paranoid recently and feels that people are talking about her. Patient's aunt at bedside notes that the patient has had these symptoms before when taking methamphetamine. Patient states that she had her dose of Suboxone yesterday but has not been consistent with Suboxone dosing as her last dose prior to yesterday was last . Patient states she feels like she may be withdrawing. We will perform basic laboratory analysis required by psychiatric services for further evaluation including CBC, BMP, ethanol, salicylate, acetaminophen, urine toxicology, urinalysis and urine will be added with gonorrhea chlamydia BV, Trichomonas and Chlamydia testing as well. We will perform a speculum vaginal exam for further evaluation of patient's discomfort and will give 1 dose of Suboxone here to treat her withdrawal symptoms. Patient verbalizes her understanding and agreement with this plan. Onset (ago): week(s) Location: neck, genitals Radiation: non-radiation Pain Scale: 0 Associated symptoms: Reports: nausea/vomiting, weakness Treatments Prior to Arrival: none - Related Data Home Medications Medication Instructions Recorded Confirmed Buprenorphine HCl/Naloxone HCl 1.75 tab SL DAILY 12/21/17 12/21/17 [Buprenorphin-Naloxon 8-2 mg Sl] Previous Rx's Medication Instructions Recorded risperiDONE [RisperDAL] 0.5 mg PO BID #28 tablet 12/23/17 Allergies Allergy/AdvReac Type Severity Reaction Status Date / Time No Known Allergies Allergy Verified 03/21/17 17:44 Review of Systems: *See History of Present Illness for more detail Constitutional: Patient admits to hot cold alterations. Denies: fever, chills Cardiovascular: Denies: chest pain Respiratory: Denies: dyspnea, cough, hemoptysis Gastrointestinal: Admits to nausea. Denies: abdominal pain, vomiting, diarrhea, constipation, hematemesis, melena, hematochezia Genitourinary: Denies: hematuria Musculoskeletal: Denies: back pain, neck pain Neurological: Admits to weakness, lightheaded/dizziness, numbness and paresthesias. Denies: headache, difficulty with ambulation. Endocrine: Denies: fatigue All systems ED: reviewed and negative except as stated. Review of Systems: As Per HPI Past Medical History - Past Medical History Medical history: Reports: hepatitis, other Surgical history: Reports: Psychiatric history: Reports: bipolar, previous psychiatric hospitalization - Social History Smoking Status: Current every day smoker Smokeless Tobacco Status: No Alcohol use: Reports: none Drug use: Reports: methamphetamine, other Physical Exam Constitutional: No acute distress, [id number], engaged to conversation, speech is fluid, answers questions appropriately Neuro: GCS 15, no overt focal neurological deficits Head: Atraumatic, normocephalic Eyes: Pupils equal, round and reactive to light, no scleral icterus, no conjunctival injection Neck: Trachea midline without deviation. Anterior neck is supple without swelling. *Chest: Symmetric chest wall rise *Heart: Cardiac rhythm and rate are regular with S1 and S2 , no S3 or S4 appreciated, no murmurs, gallops, rubs, or clicks. *Lungs: Lungs are clear to auscultation bilaterally, without accessory muscle use or prolonged expiratory phase. No wheezes, rhonchi or stridor appreciated. Abdomen: Abdomen is flat, soft to palpation, normal bowel sounds. No abdominal bruit auscultated. Non-distended, non-rigid, no organomegaly, no ascites appreciated. No pulsatile mass, no tenderness or guarding to palpation in all four quadrants, no rebound Extremities: Normal capillary refill without evidence of pedal edema, joint swelling or erythema. Pulses/motor intact in all 4 extremities. Psychiatric exam: She appears very anxious Integumentary: warm, dry, intact, normal color. No rash, cyanosis, diaphoresis, erythema, or pallor - General Limitations: no limitations General appearance: alert, in no apparent distress Course - Reevaluation(s) Reevaluation #1: Bedside vaginal exam was performed with RN and med student chaperones. There was a large amount of milky white discharge noted in the vaginal vault, cervix is poorly visit visualized but from my inspection did not appear to be friable, cultures were taken and sent to the lab for gonorrhea chlamydia and Anitha. Patient tolerated procedure well. Vital Signs Temperature 98.1 F 12/08/18 17:42 Pulse Rate 112 12/08/18 17:42 Respiratory Rate 16 12/08/18 17:42 Blood Pressure 129/84 12/08/18 17:42 O2 Sat by Pulse Oximetry 98 12/08/18 17:42 Temperature 98.1 F 12/08/18 18:05 Pulse Rate 112 12/08/18 18:05 Respiratory Rate 16 12/08/18 18:05 Blood Pressure 129/84 12/08/18 18:05 O2 Sat by Pulse Oximetry 98 12/08/18 18:05 Oxygen Delivery Oxygen Delivery Room Air Medical Decision Making - MDM Narrative Medical decision making narrative: Patient care will be signed out to the care of Dr. Himanshu Turcios and Dr. Tino Fuchs at the end of my shift. Please see documentation by these physicians for further evaluation, management and final disposition. Likely stable time of transfer of care. Attestation Statement - Attestation Attestation: I reviewed the residents documentation and agree with the residents assessment and plan of care. I have personally had face to face time with the patient. (Brief History, Brief Exam, and MDM) I personally supervised and was present for the urbano/critical portions of the following procedures completed by the resident: (add procedures performed here). [id number] time provided Triage note and vitals reviewed by me. Patient evaluated in conjunction with the resident physician Dr. Mace. Please see his documentation for details of the pelvic examination 18:23: Care to be endorsed to Dr. Turcios at 19:00 pending labs, mental health evaluation
[2018-12-08] MEDS ORDERED: *HR* Buprenorphine HCl 2 MG SUBLINGUAL TABLET SL STA (18:13)
[2018-12-08 19:11] LABS: Basophils % 0.4 %; Eosinophils % 0.1 %; Hematocrit 40.8 % (35.3-44.9); Hemoglobin 13.6 g/dL (11.5-15.4); Immature Granulocytes % 0.3 % (0-4); Lymphocytes # 1.6 K/mcL (0.6-4.6); Lymphocytes % 20.5 %; Mean Corpuscular HGB Conc 33.3 g/dL (31.6-35.5); Mean Corpuscular Hemoglobin 30.5 pg (28.0-33.3); Mean Corpuscular Volume 91.5 fL (83.0-100.0); Mean Platelet Volume 11.2 fL (9.4-12.4); Monocytes # 0.5 K/mcL (0.0-1.3); Monocytes % 6.5 %; Neutrophils # 5.6 K/mcL (1.6-8.9); Platelet Count 197 K/mcL (140-400); Red Blood Count 4.46 M/mcL (3.82-4.97); Red Cell Distribution Width 12.6 % (11.5-14.5); Segmented Neutrophils % 72.2 %; White Blood Count 7.7 K/mcL (4.3-11.1)
[2018-12-08 19:31] LABS: Acetaminophen < 10 mcg/mL (10-20); BUN/Creatinine Ratio 14 (6-26); Blood Urea Nitrogen 11 mg/dL (6-20); Calcium 9.6 mg/dL (8.6-10.3); Carbon Dioxide 22 mEq/L (23-29); Chloride 105 mEq/L (98-107); Ethanol < 10 mg/dL (Less than 10); Glucose 81 mg/dL (70-105); Osmolality,Calculated 282 (280-300); Potassium 3.4 mEq/L (3.5-5.1); Salicylate < 2.5 mg/dL (15.0-30.0); Sodium 137 mEq/L (136-145); eGFR For African Americans > 60 (> 60); eGFR For Non-African Americans > 60 (> 60)
[2018-12-08 19:38] LABS: Trichomonas DNA Not Detected (Not Detect)
[2018-12-08 19:39] LABS: Candida DNA Not Detected (Not Detect); Gardnerella DNA DETECTED (Not Detect)
[2018-12-08 19:39] LABS: Bilirubin,Urine Negative (Negative); Blood,Urine Negative (Negative); Clarity,Urine Clear (Clear); Color,Urine Yellow (Yellow); Glucose,Urine (UA) Normal (Normal); Ketones,Urine 40 mg/dL (Negative); Leukocyte Esterase,Urine Small (Negative); Nitrite,Urine Negative (Negative); PH,Urine 6.5 pH Units (5.0-8.0); Protein,Urine Negative (Neg-Trace); Specific Gravity,Urine 1.022 (1.010-1.025); Urobilinogen,Urine Normal (Normal)
[2018-12-08 19:42] LABS: Bacteria,Urine None Seen per hpf (None-Few); Hyaline Casts,Urine None Seen per lpf (None-Few); RBC,Urine 0-3 per hpf (0-3); Squamous Epithelial Cell,Urine Many per lpf (None-Few)
--- NOTE | 2018-12-08 19:44 | Emergency Department Note ---
Disposition Clinical Impression: Psychogenic formication, Vaginal discomfort, Auditory hallucinations, Substance-induced psychotic disorder, Methamphetamine abuse Disposition: Admitted As Inpatient Condition: Fair Referrals: Johnathon Salas DO [Resident] - Forms: ED Satisfaction Letter Time of Disposition: 22:21 General Adult HPI - General Chief complaint: ED Vaginal Bleeding Stated complaint: vaginal Time Seen by Provider: 12/08/18 17:47 Source: patient, family Mode of arrival: ambulatory Limitations: no limitations Nursing Notes Reviewed: Yes Vital Signs Reviewed: Yes - History of Present Illness HPI Narrative: Patient was signed out to me by daytime physicians Dr. Sadler and Dr. Mace pending medical clearance, vaginal swabs, and final disposition/psychiatric evaluation. Please see their note for further details. Location: neck, genitals Pain Scale: 0 Associated symptoms: Reports: nausea/vomiting, weakness Treatments Prior to Arrival: none - Related Data Home Medications Medication Instructions Recorded Confirmed Buprenorphine HCl/Naloxone HCl 1.5 tab SL DAILY 12/21/17 12/08/18 [Buprenorphin-Naloxon 8-2 mg Sl] Allergies Allergy/AdvReac Type Severity Reaction Status Date / Time No Known Allergies Allergy Verified 03/21/17 17:44 All systems ED: reviewed and negative except as stated. Review of Systems: As Per HPI Past Medical History - Past Medical History Medical history: Reports: hepatitis, other Surgical history: Reports: Psychiatric history: Reports: bipolar, previous psychiatric hospitalization - Social History Smoking Status: Current every day smoker Smokeless Tobacco Status: No Alcohol use: Reports: none Drug use: Reports: methamphetamine, other Physical Exam - General Limitations: no limitations General appearance: alert, in no apparent distress Course Course Narrative: Patient was signed out to me by daytime physicians Dr. Sadler and Dr. Mace pending medical clearance, vaginal swabs, and final disposition/psychiatric evaluation. Please see their note for further details. Jovita is a 33-year-old female who presents with history of anxiety depression, bipolar disorder, drug abuse presenting with the complaints of bugs crawling over her. She believes it could be fleas. She admits to methamphetamine use, roughly a week ago. States she feels like something is inside her vagina which has been causing her discomfort. She admits recent sexual activity. No known history of sexually transmitted infections. She also voices auditory hallucination stating that when she is walking the people in the cars passing by are always talking about her and telling her to hurt herself. She denies any suicidal ideation. She does not take any medications for her psychiatric illnesses. She has been admitted to [facility] the past. Pelvic exam was performed by Dr. Mace, swabs were obtained. It appears she bacterial vaginosis and will be treated for this with Flagyl. Labs are pending for medical clearance. She was treated for possible Suboxone withdrawal, dose given here. On my physical exam patient is in anxious appearing female stated age. She has multiple excoriations on her body consistent with methamphetamine use. She gets emotional and tearful at times when talking. She denies sexual abuse history. - Reevaluation(s) Reevaluation #1: [facility] evaluated the patient and will admit the patient for observation due to her psychosis and auditory hallucinations. She has been treated for bacterial vagin osis with Flagyl here it will continue the treatment. We will provide a prescription for when she gets discharged of 6 days. Impression is psychosis and auditory hallucination with methamphetamine use. Time: 22:20 Vital Signs Temperature 98.1 F 12/08/18 17:42 Pulse Rate 112 12/08/18 17:42 Respiratory Rate 16 12/08/18 17:42 Blood Pressure 129/84 12/08/18 17:42 O2 Sat by Pulse Oximetry 98 12/08/18 17:42 Temperature 98.1 F 12/08/18 18:05 Pulse Rate 112 12/08/18 18:05 Respiratory Rate 16 12/08/18 18:05 Blood Pressure 129/84 12/08/18 18:05 O2 Sat by Pulse Oximetry 98 12/08/18 18:05 Oxygen Delivery Oxygen Delivery Room Air Medical Decision Making - MDM Narrative Medical decision making narrative: Patient was discussed with my attending physician who agrees with ED management and final disposition. They independently evaluated the patient. Please refer to their attestation to this encounter for additional information. This note was generated by [employer] voice recognition software and as a result grammatical or spelling errors may occur using this program. - Medical Records Medical records reviewed: Yes I reviewed the patient's medical records. - Lab Data Lab results reviewed: Yes I reviewed the patient's lab results. Result diagrams: 12/08/18 18:47 12/08/18 18:47 Lab Results 12/08/18 12/08/18 12/08/18 Range/Units 18:30 18:30 18:47 WBC 7.7 (4.3-11.1) K/mcL RBC 4.46 (3.82-4.97) M/mcL Hgb 13.6 (11.5-15.4) g/dL Hct 40.8 (35.3-44.9) % MCV 91.5 (83.0-100.0) fL MCH 30.5 (28.0-33.3) pg MCHC 33.3 (31.6-35.5) g/dL RDW 12.6 (11.5-14.5) % Plt Count 197 (140-400) K/mcL MPV 11.2 (9.4-12.4) fL Immature Gran % 0.3 (0-4) % Seg Neutrophils % 72.2 % Lymphocytes % 20.5 % Monocytes % 6.5 % Eosinophils % 0.1 % Basophils % 0.4 % Neutrophils # 5.6 (1.6-8.9) K/mcL Lymphocytes # 1.6 (0.6-4.6) K/mcL Monocytes # 0.5 (0.0-1.3) K/mcL Eosinophils # 0.0 (0.0-0.6) K/mcL Basophils # 0.0 (0.0-0.2) K/mcL Sodium (136-145) mEq/L Potassium (3.5-5.1) mEq/L Chloride (98-107) mEq/L Carbon Dioxide (23-29) mEq/L BUN (6-20) mg/dL Creatinine (0.60-1.20) mg/dL Est GFR ( Amer) (> 60) Est GFR (Non-Af Amer) (> 60) BUN/Creatinine Ratio (6-26) Glucose (70-105) mg/dL Calculated Osmolality (280-300) Calcium (8.6-10.3) mg/dL Urine Color (Yellow) Urine Clarity (Clear) Urine pH (5.0-8.0) pH Units Ur Specific [place]uffs (1.010-1.025) Urine Protein (Neg-Trace) mg/dL Urine Glucose (UA) (Normal) mg/dL Urine Ketones (Negative) mg/dL Urine Blood (Negative) Urine Nitrite (Negative) Urine Bilirubin (Negative) Urine Urobilinogen (Normal) mg/dL Ur Leukocyte Esterase (Negative) Urine Microscopic RBC (0-3) per hpf Urine Microscopic WBC (0-3) per hpf Ur Squamous Epith Cells (None-Few) per lpf Urine Bacteria (None-Few) per hpf Hyaline Casts (None-Few) per lpf Ur Culture Indicated? (NO) Urine Test (Negative) Salicylates (15.0-30.0) mg/dL Urine Opiates Screen (Uxhzik=930) ng/mL Ur Buprenorphine Scrn (Cutoff=5) ng/mL Acetaminophen (10-20) mcg/mL Ur Barbiturates Screen (Wxkyig=623) ng/mL Ur Phencyclidine Scrn (Cutoff=25) ng/mL Ur Amphetamines Screen (Hxdxcb=5307) ng/mL U Benzodiazepines Scrn (Vxmrgq=500) ng/mL Urine Cocaine Screen (Cutoff= 300) ng/mL U Marijuana (THC) Screen (Cutoff = 50) ng/mL Ur Drug Screen Interp Ethyl Alcohol (Less than 10) mg/dL Anitha species DNA Not Detected (Not Detect) Chlam trachomat DNA PCR NOT DETECTED (Not Detect) Gardnerella DNA Probe DETECTED A (Not Detect) N.gonorrhoeae DNA (PCR) NOT DETECTED (Not Detect) Trichomonas DNA Probe Not Detected (Not Detect) 12/08/18 12/08/18 12/08/18 Range/Units 18:47 19:25 19:25 WBC (4.3-11.1) K/mcL RBC (3.82-4.97) M/mcL Hgb (11.5-15.4) g/dL Hct (35.3-44.9) % MCV (83.0-100.0) fL MCH (28.0-33.3) pg MCHC (31.6-35.5) g/dL RDW (11.5-14.5) % Plt Count (140-400) K/mcL MPV (9.4-12.4) fL Immature Gran % (0-4) % Seg Neutrophils % % Lymphocytes % % Monocytes % % Eosinophils % % Basophils % % Neutrophils # (1.6-8.9) K/mcL Lymphocytes # (0.6-4.6) K/mcL Monocytes # (0.0-1.3) K/mcL Eosinophils # (0.0-0.6) K/mcL Basophils # (0.0-0.2) K/mcL Sodium 137 (136-145) mEq/L Potassium 3.4 L (3.5-5.1) mEq/L Chloride 105 (98-107) mEq/L Carbon Dioxide 22 L (23-29) mEq/L BUN 11 (6-20) mg/dL Creatinine 0.78 (0.60-1.20) mg/dL Est GFR ( Amer) > 60 (> 60) Est GFR (Non-Af Amer) > 60 (> 60) BUN/Creatinine Ratio 14 (6-26) Glucose 81 (70-105) mg/dL Calculated Osmolality 282 (280-300) Calcium 9.6 (8.6-10.3) mg/dL Urine Color Yellow (Yellow) Urine Clarity Clear (Clear) Urine pH 6.5 (5.0-8.0) pH Units Ur Specific [place] 1.022 (1.010-1.025) Urine Protein Negative (Neg-Trace) mg/dL Urine Glucose (UA) Normal (Normal) mg/dL Urine Ketones 40 H (Negative) mg/dL Urine Blood Negative (Negative) Urine Nitrite Negative (Negative) Urine Bilirubin Negative (Negative) Urine Urobilinogen Normal (Normal) mg/dL Ur Leukocyte Esterase Small H (Negative) Urine Microscopic RBC 0-3 (0-3) per hpf Urine Microscopic WBC 5-15 H (0-3) per hpf Ur Squamous Epith Cells Many H (None-Few) per lpf Urine Bacteria None Seen (None-Few) per hpf Hyaline Casts None Seen (None-Few) per lpf Ur Culture Indicated? YES A (NO) Urine Test Negative (Negative) Salicylates < 2.5 L (15.0-30.0) mg/dL Urine Opiates Screen (Tdcqdu=191) ng/mL Ur Buprenorphine Scrn (Cutoff=5) ng/mL Acetaminophen < 10 L (10-20) mcg/mL Ur Barbiturates Screen (Rndadp=912) ng/mL Ur Phencyclidine Scrn (Cutoff=25) ng/mL Ur Amphetamines Screen (Vayscx=9913) ng/mL U Benzodiazepines Scrn (Pixqqv=406) ng/mL Urine Cocaine Screen (Cutoff= 300) ng/mL U Marijuana (THC) Screen (Cutoff = 50) ng/mL Ur Drug Screen Interp Ethyl Alcohol < 10 (Less than 10) mg/dL Anitha species DNA (Not Detect) Chlam trachomat DNA PCR (Not Detect) Gardnerella DNA Probe (Not Detect) N.gonorrhoeae DNA (PCR) (Not Detect) Trichomonas DNA Probe (Not Detect) 12/08/18 Range/Units 19:25 WBC (4.3-11.1) K/mcL RBC (3.82-4.97) M/mcL Hgb (11.5-15.4) g/dL Hct (35.3-44.9) % MCV (83.0-100.0) fL MCH (28.0-33.3) pg MCHC (31.6-35.5) g/dL RDW (11.5-14.5) % Plt Count (140-400) K/mcL MPV (9.4-12.4) fL Immature Gran % (0-4) % Seg Neutrophils % % Lymphocytes % % Monocytes % % Eosinophils % % Basophils % % Neutrophils # (1.6-8.9) K/mcL Lymphocytes # (0.6-4.6) K/mcL Monocytes # (0.0-1.3) K/mcL Eosinophils # (0.0-0.6) K/mcL Basophils # (0.0-0.2) K/mcL Sodium (136-145) mEq/L Potassium (3.5-5.1) mEq/L Chloride (98-107) mEq/L Carbon Dioxide (23-29) mEq/L BUN (6-20) mg/dL Creatinine (0.60-1.20) mg/dL Est GFR ( Amer) (> 60) Est GFR (Non-Af Amer) (> 60) BUN/Creatinine Ratio (6-26) Glucose (70-105) mg/dL Calculated Osmolality (280-300) Calcium (8.6-10.3) mg/dL Urine Color (Yellow) Urine Clarity (Clear) Urine pH (5.0-8.0) pH Units Ur Specific [place] (1.010-1.025) Urine Protein (Neg-Trace) mg/dL Urine Glucose (UA) (Normal) mg/dL Urine Ketones (Negative) mg/dL Urine Blood (Negative) Urine Nitrite (Negative) Urine Bilirubin (Negative) Urine Urobilinogen (Normal) mg/dL Ur Leukocyte Esterase (Negative) Urine Microscopic RBC (0-3) per hpf Urine Microscopic WBC (0-3) per hpf Ur Squamous Epith Cells (None-Few) per lpf Urine Bacteria (None-Few) per hpf Hyaline Casts (None-Few) per lpf Ur Culture Indicated? (NO) Urine Test (Negative) Salicylates (15.0-30.0) mg/dL Urine Opiates Screen Negative (Egzbch=417) ng/mL Ur Buprenorphine Scrn Positive H (Cutoff=5) ng/mL Acetaminophen (10-20) mcg/mL Ur Barbiturates Screen Negative (Bfojjl=165) ng/mL Ur Phencyclidine Scrn Negative (Cutoff=25) ng/mL Ur Amphetamines Screen Positive H (Lxvwfw=1054) ng/mL U Benzodiazepines Scrn Negative (Lmdcov=761) ng/mL Urine Cocaine Screen Negative (Cutoff= 300) ng/mL U Marijuana (THC) Screen Negative (Cutoff = 50) ng/mL Ur Drug Screen Interp See Below Ethyl Alcohol (Less than 10) mg/dL Anitha species DNA (Not Detect) Chlam trachomat DNA PCR (Not Detect) Gardnerella DNA Probe (Not Detect) N.gonorrhoeae DNA (PCR) (Not Detect) Trichomonas DNA Probe (Not Detect) Attestation Statement - Attestation Attestation: I, Himanshu Turcios MD, personally evaluated this patient and discussed their management with the resident physician. I reviewed the resident's note and agree with the documented findings, medical decision making, and plan of care. This patient was signed out at shift change from Dr. Mace and Dr. Sadler. Please refer to their notes for complete details of the history and physical examination. At shift change patient is awaiting medical clearance for psychiatric evaluation. Also she is awaiting test results from vaginal swabs. Patient states she does have a history of bipolar disorder and PTSD but is not on any medications for this. Patient has paranoid and states that every car she passes the people are talking about her and saying she needs to kill herself. She denies suicidal ideation or intent. She denies homicidal ideation. She states that she has been admitted to [address] psychiatric unit in the past. On examination patient is a well-developed well-nourished well-appearing female in no acute distress. She is alert and oriented 3. There is no cyanosis or diaphoresis. GC and chlamydia swabs were negative. Gardnerella swab was positive. We will treat patient for bacterial vaginosis. Tox screen was positive for BP morphine and amphetamine. [address] psychiatry department was consulted and evaluated patient in the emergency department. After evaluation in the emergency department the patient is being admitted to the [address] psychiatric [address].
[2018-12-08 19:50] LABS: Amphetamine Screen,Urine Positive ng/mL (Cutoff=1000); Barbiturate Screen,Urine Negative ng/mL (Cutoff=200); Benzodiazepines Screen,Urine Negative ng/mL (Cutoff=200); Cannabinoid Screen,Urine Negative ng/mL (Cutoff = 50); Cocaine Screen,Urine Negative ng/mL (Cutoff= 300); Opiate Screen,Urine Negative ng/mL (Cutoff=300); Phencyclidine Screen,Urine Negative ng/mL (Cutoff=25)
[2018-12-08] MEDS ORDERED: metroNIDAZOLE 500 MG TABLET PO ONE (20:01)
[2018-12-09] MEDS ORDERED: Haloperidol Lactate 5 MG/ML VIAL IM PRN (00:07)
[2018-12-09] MEDS ORDERED: hydrOXYzine pamoate 25 MG CAPSULE PO PRN (00:07)
[2018-12-09] MEDS ORDERED: Ibuprofen 400 MG TABLET PO PRN (00:07)
[2018-12-09] MEDS ORDERED: MOM Conc 10 ML UD.LIQ PO PRN (00:07)
[2018-12-09] MEDS ORDERED: *HR* LORazepam 1 MG TABLET PO PRN (00:07)
[2018-12-09] MEDS ORDERED: *HR* LORazepam 2 MG/ML VIAL IM PRN (00:07)
[2018-12-09] MEDS ORDERED: Mag Hydrox/Al Hydrox/Simeth 30 ML UDC PO PRN (00:07)
[2018-12-09] MEDS ORDERED: traZODone 50 MG TABLET PO PRN (00:07)
--- NOTE | 2018-12-09 08:53 | Discharge Summary ---
Date of Encounter: 12/09/18 Time of Encounter: 07:55 History of Present Illness Chief complaint: I had hallucinations Admitted From: Emergency Dept History of Present Illness: Ms. Crandall is a 33 year old female who presented with history of anxiety depression, and drug abuse presenting with the complaints of bugs crawling over her. She believes it could be fleas. She admits to methamphetamine use, roughly a week ago. She told the ER she feels like something is inside her vagina which has been causing her discomfort, they did a pelvic exam. She admits recent sexual activity. No known history of sexually transmitted infections. She also voices auditory hallucination stating that when she is walking the people in the cars passing by are always talking about her and telling her to hurt herself. She denies any suicidal ideation. She does not take any medications for her psychiatric illnesses. This morning she was calm and cooperative. She knowledge that she had used substance prior to coming to the emergency room. She was no longer having any auditory or visual or tactile hallucinations. She had no suicidal or homicidal thoughts, ideations, or plans. She reported that she in the past and had some mood lability and had been on Seroquel for this with some benefit. She had been on Suboxone but had missed her last appointment about a week ago and has been off it since that time. Past Med Surg Social Fam HX - Past Medical History Medical history: hepatitis, other - Past Psychiatric History Psychiatric history: Reports: bipolar, previous psychiatric hospitalization. Denies: prior suicide attempt Past psychiatric history details: She was hospitalized here at [address] about 2 years ago. At that time she was prescribed Seroquel which she took for a few months and found to be helpful. She is not currently linked with outpatient services. She has no prior suicide attempts. Family psychiatric history: No Family History of Suicide: None - Past Surgical History Surgical History: - Social History Smoking Status: Current every day smoker Smokeless Tobacco Status: No Alcohol use: none Drug use: methamphetamine, other Occupational status: unemployed Current living situation: With Family Activity Level: Independent ambulation Recent Out of Country Travel Within the Last 8 Weeks: No Exposure or Possible Exposure to Illness During Travel: No Additional social history: She lives with her mother and father and her 2 children. Medications - Discharge Medications Prescriptions: Quetiapine Fumarate [Seroquel] 100 mg PO HS #15 tablet Buprenorphine HCl/Naloxone HCl [Buprenorphin-Naloxon 8-2 mg Sl] 1.5 tab SL DAILY 12/21/17 [History] Quetiapine Fumarate [Seroquel] 100 mg PO HS #15 tablet 12/09/18 [Rx] Allergy/AdvReac Type Severity Reaction Status Date / Time No Known Allergies Allergy Verified 03/21/17 17:44 Review of Systems Constitutional: Denies: fever Eyes: Denies: eye pain Ears, Nose, Throat: Denies: ear pain Cardiovascular: Denies: chest pain Respiratory: Denies: cough Gastrointestinal: Denies: abdominal pain Genitourinary female: Denies: urgency Musculoskeletal: Denies: back pain Integumentary: Denies: rash Neurological: Denies: headache Psychiatric: Reports: depression. Denies: suicidal ideation, homicidal ideation, auditory hallucinations, visual hallucinations Endocrine: Reports: fatigue Hematologic/Lymphatic: Denies: easy bleeding Allergic/Immunologic: Denies: facial swelling Exam - HEENT Head exam IM: Present: atraumatic Eye exam IM: Present: normal appearance ENT exam IM: Present: normal exam - Neurological Neurological exam: Present: CN II-XII intact - Respiratory Respiratory exam IM: Absent: respiratory distress - GI/Abdominal GI/Abdominal exam IM: Present: no peritoneal signs. Absent: tenderness - Extremities Extremities exam IM: Present: full ROM - Skin Skin exam IM: Present: dry - Constitutional Vitals: Temp Pulse Resp BP Pulse Ox 98.1 F 89 18 94/68 97 12/09/18 00:40 12/09/18 00:40 12/09/18 00:40 12/09/18 00:40 12/09/18 00:40 General appearance: age & developmentally appropriate, well-groomed, well- nourished - Musculoskeletal Gait: normal Station: relaxed Strength & Tone: normal for patient - Psychiatric Patient Orientation: Yes Person, Yes Time, Yes Place, Yes Circumstance Level of alertness: Alert Behavior: calm, cooperative Psychomotor activity: Normal Eye Contact: Maintains Eye Contact Mood Description: Euthymic/stable Patient description of mood: Good Affect description: congruent with mood, full range Speech Volume: Normal Speech pattern: normal rate, normal rhythm, normal tone, fluent, spontaneous Language & Vocabulary: consistent with education Thought Process: Linear, Goal Oriented Thought Content: No Suicidal ideation, No Homicidal ideation, No Overt delusions Perceptual Disturbances: No Auditory hallucinations, No Visual hallucinations Attention Span Ability: Capable of Focused Attention Memory Description: Grossly Intact Patient Reliability: Reliable Historian Fund of knowledge: Yes abstraction ability, Yes average, Yes aware of current events Intelligence Estimate: Average Judgment: Good Insight: Full Results - Drug Levels and Toxicology Drug Levels and Toxicology: Drug Levels and Toxicity 12/08/18 12/08/18 18:47 19:25 Urine Opiates Screen Negative Acetaminophen < 10 L Ur Barbiturates Screen Negative Ur Phencyclidine Scrn Negative Ur Amphetamines Screen Positive H U Benzodiazepines Scrn Negative Urine Cocaine Screen Negative U Marijuana (THC) Screen Negative Ethyl Alcohol < 10 - Labs Labs: Laboratory Last Values WBC 7.7 K/mcL (4.3-11.1) 12/08/18 18:47 RBC 4.46 M/mcL (3.82-4.97) 12/08/18 18:47 Hgb 13.6 g/dL (11.5-15.4) 12/08/18 18:47 Hct 40.8 % (35.3-44.9) 12/08/18 18:47 MCV 91.5 fL (83.0-100.0) 12/08/18 18:47 MCH 30.5 pg (28.0-33.3) 12/08/18 18:47 MCHC 33.3 g/dL (31.6-35.5) 12/08/18 18:47 RDW 12.6 % (11.5-14.5) 12/08/18 18:47 Plt Count 197 K/mcL (140-400) 12/08/18 18:47 MPV 11.2 fL (9.4-12.4) 12/08/18 18:47 Immature Gran % 0.3 % (0-4) 12/08/18 18:47 Seg Neutrophils % 72.2 % 12/08/18 18:47 Lymphocytes % 20.5 % 12/08/18 18:47 Monocytes % 6.5 % 12/08/18 18:47 Eosinophils % 0.1 % 12/08/18 18:47 Basophils % 0.4 % 12/08/18 18:47 Neutrophils # 5.6 K/mcL (1.6-8.9) 12/08/18 18:47 Lymphocytes # 1.6 K/mcL (0.6-4.6) 12/08/18 18:47 Monocytes # 0.5 K/mcL (0.0-1.3) 12/08/18 18:47 Eosinophils # 0.0 K/mcL (0.0-0.6) 12/08/18 18:47 Basophils # 0.0 K/mcL (0.0-0.2) 12/08/18 18:47 Sodium 137 mEq/L (136-145) 12/08/18 18:47 Potassium 3.4 mEq/L (3.5-5.1) L 12/08/18 18:47 Chloride 105 mEq/L (98-107) 12/08/18 18:47 Carbon Dioxide 22 mEq/L (23-29) L 12/08/18 18:47 BUN 11 mg/dL (6-20) 12/08/18 18:47 Creatinine 0.78 mg/dL (0.60-1.20) 12/08/18 18:47 Est GFR ( Amer) > 60 (> 60) 12/08/18 18:47 Est GFR (Non-Af Amer) > 60 (> 60) 12/08/18 18:47 BUN/Creatinine Ratio 14 (6-26) 12/08/18 18:47 Glucose 81 mg/dL (70-105) 12/08/18 18:47 Calculated Osmolality 282 (280-300) 12/08/18 18:47 Calcium 9.6 mg/dL (8.6-10.3) 12/08/18 18:47 Urine Color Yellow (Yellow) 12/08/18 19:25 Urine Clarity Clear (Clear) 12/08/18 19:25 Urine pH 6.5 pH Units (5.0-8.0) 12/08/18 19:25 Ur Specific [place] 1.022 (1.010-1.025) 12/08/18 19:25 Urine Protein Negative mg/dL (Neg-Trace) 12/08/18 19:25 Urine Glucose (UA) Normal mg/dL (Normal) 12/08/18 19:25 Urine Ketones 40 mg/dL (Negative) H 12/08/18 19:25 Urine Blood Negative (Negative) 12/08/18 19:25 Urine Nitrite Negative (Negative) 12/08/18 19:25 Urine Bilirubin Negative (Negative) 12/08/18 19:25 Urine Urobilinogen Normal mg/dL (Normal) 12/08/18 19:25 Ur Leukocyte Esterase Small (Negative) H 12/08/18 19:25 Urine Microscopic RBC 0-3 per hpf (0-3) 12/08/18 19:25 Urine Microscopic WBC 5-15 per hpf (0-3) H 12/08/18 19:25 Ur Squamous Epith Cells Many per lpf (None-Few) H 12/08/18 19:25 Urine Bacteria None Seen per hpf (None-Few) 12/08/18 19:25 Hyaline Casts None Seen per lpf (None-Few) 12/08/18 19:25 Ur Culture Indicated? YES (NO) A 12/08/18 19: Urine Test Negative (Negative) 12/08/18 19:25 Salicylates < 2.5 mg/dL (15.0-30.0) L 12/08/18 18:47 Urine Opiates Screen Negative ng/mL (Xvwfrq=283) 12/08/18 19:25 Ur Buprenorphine Scrn Positive ng/mL (Cutoff=5) H 12/08/18 19:25 Acetaminophen < 10 mcg/mL (10-20) L 12/08/18 18:47 Ur Barbiturates Screen Negative ng/mL (Vybgvo=507) 12/08/18 19:25 Ur Phencyclidine Scrn Negative ng/mL (Cutoff=25) 12/08/18 19:25 Ur Amphetamines Screen Positive ng/mL (Xeutid=5672) H 12/08/18 19:25 U Benzodiazepines Scrn Negative ng/mL (Ewjvdp=232) 12/08/18 19:25 Urine Cocaine Screen Negative ng/mL (Cutoff= 300) 12/08/18 19:25 U Marijuana (THC) Screen Negative ng/mL (Cutoff = 50) 12/08/18 19:25 Ur Drug Screen Interp See Below 12/08/18 19:25 Ethyl Alcohol < 10 mg/dL (Less than 10) 12/08/18 18:47 Anitha species DNA Not Detected (Not Detect) 12/08/18 18:30 Chlam trachomat DNA PCR NOT DETECTED (Not Detect) 12/08/18 18:30 Gardnerella DNA Probe DETECTED (Not Detect) A 12/08/18 18:30 N.gonorrhoeae DNA (PCR) NOT DETECTED (Not Detect) 12/08/18 18:30 Trichomonas DNA Probe Not Detected (Not Detect) 12/08/18 18:30 Diagnosis - Discharge Diagnosis (1) Substance-induced psychotic disorder Status: Acute Assessment and Plan - Patient/Caregiver Discharge Instructions Activity: resume usual activities as tolerated Diet: regular diet Additional Instructions: Continue current medications. Follow up with outpatient mental health. Encourage continued therapy in a group or individual setting. The patient was discharged to home. - Follow up Plan Follow up with: NONE,PCP [Primary Care Provider] - Functional capacity at discharge: independent ambulation Overall status at discharge: Stable Disposition: Home, Self-Care Provider Date of admission: 12/08/18 23:57 Primary care physician: PCP MAKENZIE Discharging clinician: Alla Nina Hospital Course Hospital course: Ms. Crandall is a 33 year old female who was admitted for methamphetamine- induced psychosis. Once the substances. Her system she cleared. She denied hallucinations or suicidal or homicidal thoughts. She was restarted back on Seroquel which she had taken when she was here before and did well on.Patient was educated of diagnosis and the risk-benefit side effects of this alternative treatment options and was monitored for responsiveness and side effects. Mood anxiety sleep and appetite interest improved as did future orientation. Self- harm thoughts subsided, thinking cleared, psychosis resolved, and mood stabilized. Patient was able to attend both individual and group therapy sessions as well as meet with the psychiatrist daily and urged to discuss any medication or treatment issues or other concerns. The patient was educated primarily by verbal means about their diagnosis and manifestations in their life. The option for treatment including group and individual therapy programming was offered to the patient in addition to the use of medications with all their potential risks, benefits, and side effects as well as the risks of not taking medication and non-adhereance were discussed with the patient at length. The patient was given the opportunity to ask questions and was noted to participate in the treatment in the planning process. The patient felt ready and eager to be discharged from the inpatient psychiatric unit to continue on with treatment as an outpatient. The patient agreed that is they were safe for this disposition. The patient was considered to be able to participate in informed consent and decision making with respect to medical, legal, and financial issues of the time of discharge. At the time of discharge the patient adamantly denied any concerns for lethality including suicidal or homicidal thoughts ideations or plans and was future oriented toward ongoing mental health care, medical follow-up and sobriety. Time spent discussing smoking cessation with patient: 3 to 10 minutes Does patient wish to continue nicotine replacement upon disc: No - Time Spent with Patient Total time spent providing and/or coordinating discharge services: 40 Greater than 30 minutes Specific discharge activities: Interval history reviewed. Available labs reviewed . Psychotherapy provided. Patient had an opportunity to ask questions and address concerns. Patient was in agreement with the treatment plan. The risks benefits and side effects of medications were discussed with the patient, including alternatives and treatment. The patient was educated on the abstaining from any alcohol or illicit substances, following up with all scheduled appointments, and taking all medications as prescribed. The patient was educated on 90 meetings in 90 days and to find a sponsor. Procedures - Procedures Procedures: Medication Management, Crisis Stabilization, Supportive Therapy, Group Therapy, Psychoeducational Therapy Quality - Multiple Antipsychotics Patient discharged on 2 or more antipsychotic medications: No
[2018-12-09] MEDS ORDERED: metroNIDAZOLE 500 MG TABLET PO SCH (09:00)
[2018-12-09] MEDS ORDERED: Nicotine 21 MG PATCH.TD24 TD SCH (09:00)
[2018-12-09 10:28] VITALS: BP 104/74
== END 2018-12-09 12:25 | disposition home or self-care (01) ==
LOC: 1ANU 17:40 → EMEROOARM 17:40 → SUATTDRO 23:57 → 1ANU 12-09 00:43
PROVIDERS: ADMIT Psychiatry & Neurology Psychiatry; ATTEND Psychiatry & Neurology Psychiatry

== ENCOUNTER 2019-07-10 17:50 | Inpatient (IN) ==
[2019-07-10] MEDS ORDERED: *HR* LORazepam 2 MG/ML VIAL IVP ONE ×2 (17:57→20:41)
[2019-07-10] MEDS ORDERED: Naloxone 0.4 MG/ML INJ IVP ONE (18:22)
[2019-07-10] MEDS ORDERED: Naloxone 0.4 MG/ML INJ ONE (18:23)
[2019-07-10] MEDS: 0.9 % Sodium Chloride 1,000 ML IVC SCH ×3 (18:24→23:58)
[2019-07-10 19:54] LABS: Basophils % 0.2 %; Hematocrit 32.8 % (35.3-44.9); Hemoglobin 10.3 g/dL (11.5-15.4); Immature Granulocytes % 0.6 % (0-4); Mean Corpuscular HGB Conc 31.4 g/dL (31.6-35.5); Mean Corpuscular Hemoglobin 28.7 pg (28.0-33.3); Mean Corpuscular Volume 91.4 fL (83.0-100.0); Mean Platelet Volume 9.9 fL (9.4-12.4); Monocytes # 1.1 K/mcL (0.0-1.3); Monocytes % 5.3 %; Neutrophils # 18.6 K/mcL (1.6-8.9); Platelet Count 298 K/mcL (140-400); Red Blood Count 3.59 M/mcL (3.82-4.97); Red Cell Distribution Width 12.5 % (11.5-14.5); Segmented Neutrophils % 88.9 %; White Blood Count 20.9 K/mcL (4.3-11.1)
[2019-07-10 20:14] LABS: Acetaminophen < 10 mcg/mL (10-20); Alanine Aminotransferase 8 Units/L (7-52); Albumin 3.5 g/dL (3.5-5.7); Albumin/Globulin Ratio 0.9 (1.1-2.2); Alkaline Phosphatase 70 Units/L (34-104); Aspartate Amino Transferase 19 Units/L (13-39); BUN/Creatinine Ratio 27 (6-26); Bilirubin,Direct 0.2 mg/dL (0.0-0.2); Bilirubin,Indirect 0.5 mg/dL (0.0-1.0); Bilirubin,Total 0.7 mg/dL (0.3-1.0); Blood Urea Nitrogen 18 mg/dL (6-20); Calcium 8.7 mg/dL (8.6-10.3); Carbon Dioxide 19 mEq/L (23-29); Chloride 111 mEq/L (98-107); Ethanol < 10 mg/dL (Less than 10); Globulin 3.8 g/dL (2.4-3.5); Glucose 56 mg/dL (70-105); Osmolality,Calculated 294 (280-300); Potassium 3.9 mEq/L (3.5-5.1); Salicylate < 2.5 mg/dL (15.0-30.0); Sodium 142 mEq/L (136-145); Total Protein 7.3 g/dL (6.4-8.9); eGFR For African Americans > 60 (> 60); eGFR For Non-African Americans > 60 (> 60)
[2019-07-10] MEDS ORDERED: *HR* Dextrose 50 % in Water (Syg) 50 ML SYRINGE IVP ONE (20:29)
[2019-07-10 20:43] LABS: Bilirubin,Urine Negative (Negative); Blood,Urine Negative (Negative); Clarity,Urine Clear (Clear); Color,Urine Yellow (Yellow); Glucose,Urine (UA) Normal (Normal); Ketones,Urine 15 mg/dL (Negative); Leukocyte Esterase,Urine Moderate (Negative); Nitrite,Urine Negative (Negative); PH,Urine 5.5 pH Units (5.0-8.0); Protein,Urine Trace mg/dL (Neg-Trace); Specific Gravity,Urine 1.027 (1.010-1.025); Urobilinogen,Urine Normal (Normal)
[2019-07-10 20:47] LABS: Bacteria,Urine None Seen per hpf (None-Few); Hyaline Casts,Urine Moderate per lpf (None-Few); RBC,Urine 0-3 per hpf (0-3); Squamous Epithelial Cell,Urine Many per lpf (None-Few); WBC,Urine 15-30 per hpf (0-3)
[2019-07-10 21:14] LABS: Renal Epithelial Cells,Urine Few per hpf (None-Few)
[2019-07-10 21:25] LABS: Amphetamine Screen,Urine Positive ng/mL (Cutoff=1000); Barbiturate Screen,Urine Negative ng/mL (Cutoff=200); Benzodiazepines Screen,Urine Positive ng/mL (Cutoff=200); Cannabinoid Screen,Urine Negative ng/mL (Cutoff = 50); Cocaine Screen,Urine Negative ng/mL (Cutoff= 300); Opiate Screen,Urine Negative ng/mL (Cutoff=300); Phencyclidine Screen,Urine Negative ng/mL (Cutoff=25)
[2019-07-10] MEDS ORDERED: 0.9 % Sodium Chloride 1,000 ML IVC ONE (21:49)
[2019-07-10] MEDS ORDERED: Haloperidol Lactate 5 MG/ML VIAL IM ONE (21:50)
[2019-07-10 22:34] LABS: Creatine Kinase 529 Units/L (30-223)
[2019-07-11] MEDS ORDERED: D5% in Water 1,000 ML IVC PRN (04:02)
[2019-07-11] MEDS ORDERED: *HR* Dextrose 50 % in Water (Syg) 50 ML SYRINGE IVP PRN (04:02)
[2019-07-11] MEDS ORDERED: Dextrose Gel 15 GM/37.5 ML TUBE PO PRN ×2 (04:02)
[2019-07-11] MEDS: Azithromycin 500 MG in 0.9 % Sodium Chloride 250 ML IVPB SCH (04:19)
[2019-07-11] MEDS: *HR* Heparin 5,000 UNIT/ML VIAL SQ SCH ×3 (04:19→20:40)
[2019-07-11 04:40] LABS: Basophils # 0.1 K/mcL (0.0-0.2); Basophils % 0.5 %; Eosinophils % 0.3 %; Hematocrit 29.4 % (35.3-44.9); Hemoglobin 9.4 g/dL (11.5-15.4); Immature Granulocytes % 0.4 % (0-4); Lymphocytes # 2.7 K/mcL (0.6-4.6); Lymphocytes % 24.1 %; Mean Corpuscular Hemoglobin 29.1 pg (28.0-33.3); Monocytes % 9.3 %; Neutrophils # 7.2 K/mcL (1.6-8.9); Platelet Count 257 K/mcL (140-400); Red Blood Count 3.23 M/mcL (3.82-4.97); Red Cell Distribution Width 12.6 % (11.5-14.5); Segmented Neutrophils % 65.4 %; White Blood Count 11.1 K/mcL (4.3-11.1)
[2019-07-11] MEDS: *HR* LORazepam 2 MG/ML VIAL IVP PRN ×2 (04:43→15:06)
[2019-07-11 04:47] LABS: INR 1.3; Prothrombin Time 15.2 Seconds (9.4-12.1)
[2019-07-11 05:04] LABS: Alanine Aminotransferase 9 Units/L (7-52); Albumin 2.9 g/dL (3.5-5.7); Albumin/Globulin Ratio 0.9 (1.1-2.2); Alkaline Phosphatase 59 Units/L (34-104); Aspartate Amino Transferase 21 Units/L (13-39); BUN/Creatinine Ratio 29 (6-26); Bilirubin,Total 0.6 mg/dL (0.3-1.0); Blood Urea Nitrogen 15 mg/dL (6-20); Carbon Dioxide 20 mEq/L (23-29); Chloride 113 mEq/L (98-107); Globulin 3.1 g/dL (2.4-3.5); Glucose 74 mg/dL (70-105); Magnesium 1.9 mg/dL (1.6-2.6); Osmolality,Calculated 287 (280-300); Phosphorous 3.3 mg/dL (2.7-4.5); Potassium 3.9 mEq/L (3.5-5.1); Sodium 139 mEq/L (136-145); eGFR For African Americans > 60 (> 60); eGFR For Non-African Americans > 60 (> 60)
[2019-07-11 05:14] LABS: % Iron Saturation 16 % (15-50); Iron 39 mcg/dL (50-170); Transferrin 176 mg/dL (203-362)
[2019-07-11 05:20] LABS: Ferritin 77 ng/mL (10-120)
[2019-07-11 05:27] LABS: Folate > 22.3 ng/mL (3.0-16.0); Vitamin B12 312 pg/mL (250-1100)
[2019-07-11] MEDS: 0.9 % Sodium Chloride 1,000 ML IVC SCH ×2 (10:02→17:48)
[2019-07-11] MEDS: cefTRIAXone 1,000 MG in Water for inj. (sterile) 10 ML IVP SCH (10:03)
[2019-07-11 12:27] LABS: Adenovirus Not Detected (Not Detect); Bordetella Pertussis Not Detected (Not Detect); Chlamydophila pneumoniae Not Detected (Not Detect); Coronavirus 229E Not Detected (Not Detect); Coronavirus HKU1 Not Detected (Not Detect); Coronavirus NL63 Not Detected (Not Detect); Coronavirus OC43 Not Detected (Not Detect); Human Metapneumovirus Not Detected (Not Detect); Human Rhinovirus/Enterovirus Not Detected (Not Detect); Influenza A Subtype 2009 H1 Not Detected (Not Detect); Influenza B Not Detected (Not Detect); Mycoplasma pneumoniae Not Detected (Not Detect); Parainfluenza Virus 1 Not Detected (Not Detect); Parainfluenza Virus 2 Not Detected (Not Detect); Parainfluenza Virus 3 Not Detected (Not Detect); Parainfluenza Virus 4 Not Detected (Not Detect); Respiratory Syncytial Virus Not Detected (Not Detect)
[2019-07-11] MEDS: Nicotine 21 MG PATCH.TD24 TD SCH (15:10)
[2019-07-11] MEDS ORDERED: QUEtiapine Fumarate 25 MG TABLET PO PRN (17:20)
[2019-07-11] MEDS: QUEtiapine Fumarate 100 MG TABLET PO SCH (20:39)
[2019-07-12 02:48] LABS: Hematocrit 28.9 % (35.3-44.9); Hemoglobin 9.2 g/dL (11.5-15.4); Mean Corpuscular HGB Conc 31.8 g/dL (31.6-35.5); Mean Corpuscular Hemoglobin 29.2 pg (28.0-33.3); Mean Corpuscular Volume 91.7 fL (83.0-100.0); Mean Platelet Volume 9.9 fL (9.4-12.4); Platelet Count 242 K/mcL (140-400); Red Blood Count 3.15 M/mcL (3.82-4.97)
[2019-07-12 03:05] LABS: White Blood Count 4.5 K/mcL (4.3-11.1)
[2019-07-12 03:15] LABS: BUN/Creatinine Ratio 21 (6-26); Blood Urea Nitrogen 10 mg/dL (6-20); Calcium 7.5 mg/dL (8.6-10.3); Carbon Dioxide 22 mEq/L (23-29); Chloride 114 mEq/L (98-107); Glucose 102 mg/dL (70-105); Osmolality,Calculated 289 (280-300); Potassium 3.8 mEq/L (3.5-5.1); Sodium 140 mEq/L (136-145); eGFR For African Americans > 60 (> 60); eGFR For Non-African Americans > 60 (> 60)
[2019-07-12] MEDS: 0.9 % Sodium Chloride 1,000 ML IVC SCH ×4 (03:18→21:41)
[2019-07-12] MEDS: Azithromycin 500 MG in 0.9 % Sodium Chloride 250 ML IVPB SCH (05:41)
[2019-07-12] MEDS: *HR* Heparin 5,000 UNIT/ML VIAL SQ SCH ×3 (05:49→20:13)
[2019-07-12] MEDS: Nicotine 21 MG PATCH.TD24 TD SCH (09:55)
[2019-07-12] MEDS: cefTRIAXone 1,000 MG in Water for inj. (sterile) 10 ML IVP SCH (09:55)
[2019-07-12] MEDS: QUEtiapine Fumarate 100 MG TABLET PO SCH (20:06)
[2019-07-13] MEDS: *HR* Heparin 5,000 UNIT/ML VIAL SQ SCH (05:10)
[2019-07-13] MEDS: Azithromycin 500 MG in 0.9 % Sodium Chloride 250 ML IVPB SCH (05:19)
[2019-07-13] MEDS: 0.9 % Sodium Chloride 1,000 ML IVC SCH (05:20)
[2019-07-13 05:58] LABS: Hematocrit 30.6 % (35.3-44.9); Hemoglobin 9.7 g/dL (11.5-15.4); Mean Corpuscular HGB Conc 31.7 g/dL (31.6-35.5); Mean Corpuscular Volume 91.6 fL (83.0-100.0); Mean Platelet Volume 9.9 fL (9.4-12.4); Platelet Count 236 K/mcL (140-400); Red Blood Count 3.34 M/mcL (3.82-4.97); Red Cell Distribution Width 12.9 % (11.5-14.5); White Blood Count 4.5 K/mcL (4.3-11.1)
[2019-07-13 06:25] LABS: BUN/Creatinine Ratio 13 (6-26); Blood Urea Nitrogen 6 mg/dL (6-20); Calcium 7.6 mg/dL (8.6-10.3); Carbon Dioxide 24 mEq/L (23-29); Chloride 112 mEq/L (98-107); Glucose 98 mg/dL (70-105); Osmolality,Calculated 288 (280-300); Potassium 3.5 mEq/L (3.5-5.1); Sodium 140 mEq/L (136-145); eGFR For African Americans > 60 (> 60); eGFR For Non-African Americans > 60 (> 60)
[2019-07-13] MEDS: Nicotine 21 MG PATCH.TD24 TD SCH (07:53)
[2019-07-13] MEDS: cefTRIAXone 1,000 MG in Water for inj. (sterile) 10 ML IVP SCH (07:54)
[2019-07-13 08:08] VITALS: BP 117/73
[2019-07-14 10:12] LABS: Mycoplasma pneumoniae IgG 1.46 U/L (<=0.09)
[2019-07-14 21:01] LABS: CK-BB (CK isoenzymes) 0 % (0-0); CK-MB (CK isoenzymes) 0 % (0-4); CK-MM (CK-isoenzymes) 100 % (96-100)
[2019-07-15 10:42] LABS: CK Total (Ck Isoenzymes) 713 U/L (20-180)
== END 2019-07-13 10:25 | disposition home or self-care (01) | DRG 776 ==
LOC: EMEROOARM 17:50 → 3BNU 17:50
PROVIDERS: ADMIT Family Medicine; ATTEND Family Medicine